=== PATIENT | male | born 1965 | race Caucasian/White ===

== ENCOUNTER 2016-10-10 16:53 | Inpatient (IN) | payer MEDICAID ==
[~2016-10-10 16:53] MED LIST: ONDANSETRON 4 MG/2 ML VIAL ONE
[2016-10-10] MEDS ORDERED: ONDANSETRON 4 MG/2 ML VIAL IVP ONE ×2 (17:01→19:25)
[2016-10-10] MEDS ORDERED: NS 1,000 ML IV ONE (17:01)
--- NOTE | 2016-10-10 17:16 | CPEKG ---
Heart Rate: 85 RR Interval: 706 P-R Interval: 192 QRSD Interval: 100 QT Interval: 392 QTC Interval: 467 P [place]: 59 QRS [place]: 140 T Wave [place]: 45 EKG Severity - BORDERLINE ECG - EKG Impression: SINUS RHYTHM EKG Impression: PROBABLE LEFT ATRIAL ABNORMALITY EKG Impression: CONSIDER RIGHT VENTRICULAR HYPERTROPHY EKG Impression: ST ELEV, PROBABLE NORMAL EARLY REPOL PATTERN Electronically Signed By: Riley Aj 10-Oct-2016 20:49:51
--- NOTE | 2016-10-10 17:16 | EDPHY ---
H & P Stated Complaint: ABD PAIN, N/D- AT [employer] HAD SYNCOPAL EPISODE HPI/ROS: CHIEF COMPLAINT: Syncope, abdominal pain, diarrhea, vomiting HISTORY OF PRESENT ILLNESS: the patient woke this morning with diarrhea. He notes numerous episodes of nonbloody, liquidy diarrhea. Associated with some periumbilical abdominal pain and nausea. No vomiting until this evening. No bloody stools or emesis. No fever or chills. No chest pain of any kind. No trauma or injury. No recent travel or surgery. No new intake of food. No sick contacts. 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 He said that after taking only became lightheaded and dizzy immediately, and reports being told that he blacked out. Next thing he can remember, he is awake and there was When EMS team with him. No headache prior to the syncopal episode. Minimal headache at this time. Symptoms are improved at rest but worse with any palpation or movement. No history of syncope. No abdominal pathology in the past. No diabetes. No other associated complaints or modifying factors. REVIEW OF SYSTEMS: Ten systems reviewed and are negative unless otherwise noted in the HPI EXAMINATION General Appearance: Alert, no distress Head: normocephalic, atraumatic , no outward signs of trauma Eyes: Pupils equal and round, EOMs intact. no conjunctival pallor or injection , no nystagmus. Visual zimmerman intact. ENT, Mouth: Mucous membranes moist, no lesions or erythema. Uvula midline Neck: Normal inspection, supple, non-tender Respiratory: Lungs are clear to auscultation Cardiovascular: Regular rate and rhythm Gastrointestinal: overweight. Abdomen is soft But moderately tender in the periumbilical and bilateral lower quadrants. There is no rebound or guarding. No tympany. Back: non-tender, no bony abnormalities Neurological: A&O, nonfocal, CN 2 through 12 grossly intact, sensory intact bilaterally. Strength is 5/5 in both arms and both legs. No pronator drift. Skin: Warm and dry, no rash Extremities: Nontender, no pedal edema Psychiatric: Mood and affect normal DIFFERENTIAL DIAGNOSES: Including but not limited to Dehydration, syncope, colitis, diverticulitis, pancreatitis, enteritis, dysrhythmia. MDM: 20:10 Nausea, vomiting, diarrhea and abdominal pain with subsequent possible syncopal episode. the patient was well-appearing and nontoxic upon 1st examination. He was very tender to palpation in the abdomen, thus we did order CT scan of the abdomen and pelvis. We also ordered multiple laboratory studies as well as CT of the head and EKG due to the syncope. I was contacted by Radiology notified of findings. A CT of the head, he knows the right basal ganglia lesion, approximately 1 cm that he suspects is a venous malformation. He does not suspect an AVM. Nor does he suspect an actual enhancing lesion. He questions the possibility of seizure given the patient's history and appearance of the CT scan. I will contact the hospitalist to discuss and for admission. 20:20 I have spoken with [address] Nolen, and he will consult regarding the abdominal pain and CT findings. 20:47 Dr. Nolen Has personally examined the patient and reviewed the films. He does not feel that this is a volvulus, but does want NG tube insertion for decompression. He will continue to monitor the patient with abdominal exams for the possibility of surgical intervention should it be needed. I have also spoken with Dr. Crane, and she will admit the patient to a PCU bed. At this time, he will be admitted for further care. He remains hemodynamically stable in the emergency department and is comfortable with this plan. EKG: Interpreted by Dr. Aj SUPERVISION: Patient was evaluated in conjunction with the supervising physician. Please see their note for details. - Personal History Current Tetanus/Diphtheria Vaccine: Yes Current Tetanus Diphtheria and Acellular Pertussis (TDAP): Yes Tetanus Vaccine Date: 2010 - Medical/Surgical History Hx Asthma: No Hx Chronic Respiratory Disease: No Hx Diabetes: No Hx Cardiac Disease: No Hx Renal Disease: No Hx Cirrhosis: No Hx Alcoholism: No Hx HIV/AIDS: No Hx Splenectomy or Spleen Trauma: No Other PMH: anxiety, asperger's; kidney stones; Left ankle sx - Social History Smoking Status: Never smoked Constitutional: Initial Vital Signs Temperature (C) 97.7 F 10/10/16 16:53 Heart Rate 84 10/10/16 16:53 Respiratory Rate 18 10/10/16 16:53 Blood Pressure 136/89 H 10/10/16 16:53 O2 Sat (%) 96 10/10/16 16:53 O2 Delivery Mode Room Air Allergies/Adverse Reactions: No Known Allergies Allergy (Verified 01/16/17 17:06) Home Medications: Medication Instructions Recorded NK [No Known Home Meds] 10/10/16 Medical Decision Making - Data Points Laboratory Results: Laboratory Results 10/10/16 18:25 10/10/16 18:25 10/10/16 10/10/16 18:34 18:25 WBC 16.48 H 10^3/uL (3.80-9.50) RBC 6.24 10^6/uL (4.40-6.38) Hgb 17.5 g/dL (13.7-17.5) POC Hgb 19.0 H gm/dL (14.5-17.3) Hct 52.4 H % (40.0-51.0) POC Hct 56 H % (42.8-50.6) MCV 84.0 fL (81.5-99.8) MCH 28.0 pg (27.9-34.1) MCHC 33.4 g/dL (32.4-36.7) RDW 14.3 % (11.5-15.2) Plt Count 255 10^3/uL (150-400) MPV 11.5 fL (8.7-11.7) Neut % (Auto) 84.1 H % (39.3-74.2) Lymph % (Auto) 9.2 L % (15.0-45.0) [place] % (Auto) 5.5 % (4.5-13.0) Eos % (Auto) 0.4 L % (0.6-7.6) Baso % (Auto) 0.4 % (0.3-1.7) Nucleat RBC Rel Count 0.0 % (0.0-0.2) Absolute Neuts (auto) 13.89 H 10^3/uL (1.70-6.50) Absolute Lymphs (auto) 1.51 10^3/uL (1.00-3.00) Absolute Monos (auto) 0.90 H 10^3/uL (0.30-0.80) Absolute Eos (auto) 0.06 10^3/uL (0.03-0.40) Absolute Basos (auto) 0.06 10^3/uL (0.02-0.10) Absolute Nucleated RBC 0.00 10^3/uL (0-0.01) Immature Gran % 0.4 % (0.0-1.1) Immature Gran # 0.06 10^3/uL (0.00-0.10) POC Sodium 141 mEq/L (134-144) Sodium 140 mEq/L (134-144) POC Potassium 4.3 mEq/L (3.3-5.0) Potassium 4.7 mEq/L (3.5-5.2) POC Chloride 104 mEq/L (96-108) Chloride 102 mEq/L (97-110) Carbon Dioxide 23 mEq/l (22-31) Anion Gap 15 mEq/L (8-16) POC BUN 16 mg/dL (7-23) BUN 14 mg/dL (7-23) Creatinine 0.9 mg/dL (0.7-1.3) POC Creatinine 0.9 mg/dL (0.8-1.5) Estimated GFR > 60 Glucose 135 H mg/dL (70-100) POC Glucose 139 H mg/dL (70-100) Calcium 9.8 mg/dL (8.5-10.4) Total Bilirubin 0.7 mg/dL (0.1-1.4) Conjugated Bilirubin 0.5 mg/dL (0.0-0.5) Unconjugated Bilirubin 0.2 mg/dL (0.0-1.1) AST 34 IU/L (17-59) ALT 56 IU/L (21-72) Alkaline Phosphatase 88 IU/L (38-126) Troponin I < 0.012 ng/mL (0-0.034) Total Protein 7.8 g/dL (6.3-8.2) Albumin 4.7 g/dL (3.5-5.0) Lipase 69.0 IU/L (23-300) Medications Given: Discontinued Medications Sodium Chloride (Ns) 1,000 mls @ 0 mls/hr IV ONCE ONE PRN Reason: Wide Open Stop: 10/10/16 17:02 Last Admin: 10/10/16 17:07 Dose: 1,000 mls Ondansetron HCl (Zofran) 4 mg IVP EDNOW ONE Stop: 10/10/16 17:02 Last Admin: 10/10/16 17:07 Dose: 4 mg Ondansetron HCl (Zofran) 4 mg IVP EDNOW ONE Stop: 10/10/16 19:26 Last Admin: 10/10/16 19:28 Dose: 4 mg Point of Care Test Results: 10/10/16 18:34 POC Sodium 141 POC Potassium 4.3 POC Chloride 104 POC BUN 16 POC Creatinine 0.9 POC Glucose 139 H Departure - Departure Clinical Impression: Syncope and collapse, Abdominal pain, Diarrhea, Nausea and vomiting Referrals: Patient,NotPresent [Primary Care Provider] - As per Instructions
--- NOTE | 2016-10-10 17:41 | DX ---
Portable AP Upright Chest, at 5:23 p.m. Clinical History: 51-year-old male with dizziness and a syncopal event, and now complaining of some a bdominal pain and diarrhea for one day. Comparison Study: Chest, dated September 28, 2013. Findings: There is elevation of the left hemidiaphragm with air-filled stomach and/or splenic flexure beneath. There is some mild subsegmental atelectasis at the left lung base as a result. The cardiac and mediastinal silhouette is normal. The inspiratory depth is to the 9th posterior rib level. There is no pleural effusion or pneumothorax. The osseous structures are age-appropriate. Impression: Mild hypoventilatory change with a mildly elevated left hemidiaphragm secondary to air-fi lled stomach and/or splenic flexure with some mild left basilar subsegmental atelectasis.
[2016-10-10] MEDS ORDERED: IOPAMIDOL (ISOVUE-300) 50 ML VIAL IV ONE (18:31)
[2016-10-10 18:43] LABS: % IMMATURE GRANULYOCYTES 0.4 % (0.0-1.1); ABSOLUTE IMMATURE GRANULOCYTES 0.06 10^3/uL (0.00-0.10); ADD DIFF? NO; ADD MORPH? NO; ADD SCAN? NO; ATYPICAL LYMPHOCYTE FLAG 0 (0-99); FRAGMENT RBC FLAG 0 (0-99); HEMATOCRIT 52.4 % (40.0-51.0); HEMOGLOBIN 17.5 g/dL (13.7-17.5); LEFT SHIFT FLG 0 (0-99); LIPEMIA HEMOLYSIS FLAG 80 (0-99); MEAN CELL HEMOGLOBIN CONCENTR. 33.4 g/dL (32.4-36.7); MEAN PLATELET VOLUME 11.5 fL (8.7-11.7); PLATELET CLUMPS FLAG 10 (0-99); PLATELET COUNT 255 10^3/uL (150-400); RED BLOOD CELL COUNT 6.24 10^6/uL (4.40-6.38); RED CELL DISTRIBUTION WIDTH 14.3 % (11.5-15.2)
[2016-10-10 19:24] LABS: ALANINE AMINOTRANSFERASE 56 IU/L (21-72); ALBUMIN 4.7 g/dL (3.5-5.0); ALKALINE PHOSPHATASE 88 IU/L (38-126); ANION GAP 15 mEq/L (8-16); ASPARTATE AMINOTRANSFERASE 34 IU/L (17-59); BILIRUBIN,TOTAL 0.7 mg/dL (0.1-1.4); BILIRUBIN-CONJUGATED 0.5 mg/dL (0.0-0.5); BILIRUBIN-UNCONJUGATED 0.2 mg/dL (0.0-1.1); CALCIUM 9.8 mg/dL (8.5-10.4); CARBON DIOXIDE 23 mEq/l (22-31); CHLORIDE 102 mEq/L (97-110); CREATININE 0.9 mg/dL (0.7-1.3); GLOMERULAR FILTRATION RATE > 60; GLUCOSE 135 mg/dL (70-100); POTASSIUM 4.7 mEq/L (3.5-5.2); SODIUM 140 mEq/L (134-144); TOTAL PROTEIN 7.8 g/dL (6.3-8.2)
[2016-10-10] MEDS ORDERED: ONDANSETRON 4 MG/2 ML VIAL ONE (19:25)
[2016-10-10 19:36] LABS: TROPONIN I < 0.012 ng/mL (0-0.034)
--- NOTE | 2016-10-10 20:10 | CT ---
CT Abdomen and Pelvis, With Intravenous Contrast History: Abdominal pain and vomiting. Technique: The patient received 97 mL of Isovue-300 intravenously, given by automated power machine injector. Multidetector helical CT was performed through the abdomen and pelvis using dose reduction technology. Comparison: Compare 2014. Findings: Some of the small bowel is dilated to a moderate extent, and the stomach is moderately dis tended. Distal loops of small bowel, however, are of normal caliber. Possible twist of small bowel loop is found in the left side of the abdomen, and small bowel mesentery appears edematous. I do not see the appendix. No solid masses are found. Bilateral renal cysts are similar to 2014, with no hy dronephrosis. A 4-mm stone in the lower pole of the left kidney is new. No evidence of ureteral sto ne. Nodular enlargement of the prostate gland is worse than 2014. The liver, gallbladder, pancreas, spleen, and adrenal glands are normal. No ascites. Impressions 1. Suspicious of small bowel obstruction, possibly volvulus. 2. A 4-mm left ureteral stone. 3. Enlarged prostate. I telephoned results to Dr. Aj at 2005 hours.
--- NOTE | 2016-10-10 20:26 | CT ---
CT Scan of the Head (Without and With Contrast) Clinical Indications: Syncopal episode in store. Technique: Thinly collimated multidetector axial CT was performed from foramen magnum through vertex before and following 97 mL of Isovue-300 given intravenously by power machine injection. Images wer e reviewed at settings for soft tissues and bone. Images were reconstructed down to 1.25-mm images. Dose reduction techniques were utilized. Findings: A vague area of increased density of up to 1.2 cm size in the right globus pallidus is ass ociated with a rather prominent deep draining vein that empties into the venous plexus of the right l ateral ventricle. A faint calcification is found along the posterior margin of this finding. No mas s effect. Findings are suspicious of venous malformation. There is no evidence of intracranial hemo rrhage or acute infarct. The ventricles and subarachnoid spaces are normal. No abnormality of enhan cement is identified. Bone windows reveal no fracture. Paranasal sinuses and mastoid air cells are free of fluid. Impression: 1.2-cm lesion of right globus pallidus (basal ganglia), possibly venous malformation. I telephoned results to CANDELARIO Jensen, at 2005 hours.
[2016-10-10] MEDS ORDERED: LIDOCAINE 2% JELLY 20 ML (UROJECT) ONE (20:52)
[2016-10-10] MEDS ORDERED: BENZOCAINE UNIT DOSE SPRAY HURRICAINE MM ONE ×3 (20:54→22:11)
[2016-10-10 21:09] LABS: INR 1.1 (0.83-1.16); PROTIME(PATIENT) 14.1 SEC (12.0-15.0)
[2016-10-10] MEDS ORDERED: PROMETHAZINE HCL 25 MG/ML VIAL IM ONE (21:09)
[2016-10-10 21:10] LABS: APTT 24.1 SEC (23.0-38.0)
--- NOTE | 2016-10-10 22:05 | GCON ---
[f rep st] CONSULTATION DATE OF CONSULTATION: 10/10/2016 CHIEF COMPLAINT: Abdominal pain with syncopal episode. HISTORY OF PRESENT ILLNESS: This is a 51-year-old male, who began having abdominal pain last evening , coming in to today. He works at the local [employer] and was able to get to work; however, had sig nificant diarrhea, which he states was nonbloody, nonbilious at work. This persisted to the point wh ere he had some growing abdominal pain. He states that he finished his shift at work and attempted t o go to [facility] to buy some [id number] medications to alleviate his pain. He endorses having a significantly excruciatingly painful episode that he relates around his umbilicus on either side whic h was quickly followed by a syncopal episode. He recalls being awoken on the floor of the [facility], lino rrounded by the EMS. He was promptly brought here. Once arriving at the [facility], he began having a significant amount of nausea and vomiting and threw up multiple times. He shukla s endorse that vomiting makes his pain significantly better. After receiving some IV fluids and narc otics, he states that his pain has almost completely resolved and relates it at a 0.5 on a 1-10 scale . He states that he was passing a significant amount of flatus over the past few weeks; however, has not really passed much today. His last bowel movement again was earlier today when he was having a significant amount of diarrhea. He denies having any fevers or chills, and prior to this states that he was in his usual state health other than the episodes previously mentioned earlier today. He den ies having any sick contacts in the meantime as well. PAST MEDICAL HISTORY: Anxiety, Asperger's, kidney stones. PAST SURGICAL HISTORY: Left ankle surgery, for which he states he had issues with urination afterwar ds. REVIEW OF SYSTEMS: A full 10-point review of systems was performed and, unless explicitly stated abo ve, it was negative. CURRENT MEDICATIONS: None. ALLERGIES: None. PHYSICAL EXAM: VITAL SIGNS: Temperature 97.7, heart rate 84, blood pressure 130/89, respiratory rat e 18, he is 96% on room air. GENERAL: He is alert and oriented, in no acute distress. LUNGS: Abbi r to auscultation bilaterally. CARDIOVASCULAR: He has a regular rate and rhythm without any appreci able murmurs. ABDOMEN: Soft, nondistended, nontender without any rebound, tenderness or guarding. EXTREMITIES: Warm and well perfused. LABS: Leukocytosis to 16,000, hemoglobin and hematocrit stable. His BMP is within normal limits. IMAGING: He had a CT scan of the abdomen and pelvis which shows a significant amount of dilatation o f his stomach and proximal small bowel. There is a concerning area in the left lower quadrant with s ome surrounding mesenteric edema without any fady transition point and/or volvulus. The distal smal l portion of the ileum image does show some decompressed small bowel, albeit limited in length. He a lso had a CT scan of his head given his syncope which showed a 1.2 cm lesion in the right globus pall idus suspicious for venous malformation. ASSESSMENT/PLAN: A 51-year-old male with recent syncopal episode and CT scan imaging findings concer jodi for small bowel obstruction. I discussed the patient's imaging findings with him today. Given the fact that his abdominal exam now is completely reassuring and that his pain has completely resolv ed, I am hesitant to take him to the operating room given his drastic clinical improvement. I did tel l him that given that he had a significant amount of small bowel and stomach dilatation, he would lola efit from a nasogastric tube, which I have asked the emergency department to place. I will continue to monitor him from a small-bowel standpoint, but I am hesitant to take him to the operating room wit h his currently reassuring exam. In addition, he also has a mother with Crohn disease, so he does galindo ve a significant family history for inflammatory bowel disease, and this mesenteric edema with second mayda obstruction to the inflammation is not an uncommon way that these can present, so I would want th is to be significantly ruled out before I made the decision to go in and resected it if he did have a n underlying Crohn disease flare. I will continue to follow and reassess on an ongoing basis. If in the morning his abdominal exam worsens or if he continues to have pain, I will not hesitate to take him to the operating room for exploratory laparoscopy just to get a better idea as to what is going o n with his abdomen. But we will hold off for now given his current reassuring exam. In addition, he will be admitted to the medicine service for workup for his syncopal episode and his new CT scan fin dings of the venous malformation. We will follow along with you. /[id number]/MODL
[2016-10-10 23:04] LABS: COLOR YELLOW; LEUKOCYTE ESTERASE,URINE 3+ (NEGATIVE); NITRITE,URINE POSITIVE (NEGATIVE)
[2016-10-10 23:20] LABS: BACTERIA TRACE /hpf (NONE SEEN); MUCUS TRACE /lpf (NONE-1+); RBC,URINE 15-25 /hpf (0-3); WBC,URINE 50-182 /hpf (0-3)
[2016-10-10] MEDS ORDERED: ACETAMINOPHEN 325 MG TAB PO PRN (23:40)
[2016-10-10] MEDS ORDERED: ONDANSETRON DISINTEGRATING 4 MG TAB PO PRN (23:40)
[2016-10-10] MEDS ORDERED: ONDANSETRON 4 MG/2 ML VIAL IVP PRN (23:40)
[2016-10-10] MEDS ORDERED: HYDROCODONE/APAP 5/325 TAB PO PRN (23:40)
[2016-10-10] MEDS ORDERED: LORazepam 0.5 MG TAB PO PRN (23:40)
[2016-10-11] MEDS: NS 1,000 ML IV SCH ×2 (00:13→12:39)
[2016-10-11] MEDS: CIPROFLOXACIN 400 MG/DEXTROSE 200 ML IV SCH ×3 (00:31→21:19)
--- NOTE | 2016-10-11 04:31 | PDGENHP ---
History and Physical - Chief Complaint syncope - History of Present Illness Patient is a 51-year-old male with a history of obesity, Asperger syndrome who to the ED after syncopal episode. Patient states since this morning he had developed acute onset nausea, vomiting and diarrhea. He reports vomiting at least 6 times today, nonbloody, and having at least 12 bowel movements of loose brown stool, with no evidence of blood. Then and today he was in the checkout line at [employer] at around 4:00 p.m. when he syncopized. He believes loss of consciousness was less than a minute, awoke with full cognition, thinks he did hit his head on the ground. Prior to syncopized, he describes feeling lightheaded and darkening of his vision, but denies any associated chest pain palpitations or shortness of breath. EMS was called and he was brought to the ED. On arrival to the ED patient was afebrile hemodynamically stable. Labs revealed leukocytosis, normal BMP and electrolytes, negative troponin. CT of the abdomen and pelvis was obtained, revealed evidence of bowel obstruction and a small left ureteral stone. CT head was negative for acute intracranial hemorrhage, but did reveal a basal ganglion lesion, likely venous malformation. EKG was unremarkable for any evidence of ischemia or arrhythmia. Surgery was consulted regarding the small bowel obstruction and an NG tube was placed in the ER. Patient was then admitted to the hospital service for further management. History Information - Allergies/Home Medication List Allergies/Adverse Reactions: No Known Allergies Allergy (Verified 10/10/16 17:06) Home Medications: NK [No Known Home Meds] 10/10/16 [Last Taken Unknown] I have personally reviewed and updated: family history, medical history, social history, surgical history - Past Medical History Additional medical history: Asperger syndrome, anxiety. 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 Review of Systems ROS: 10pt was reviewed & negative except for what was stated in HPI & below Physical Exam Temp Pulse Resp BP Pulse Ox 36.5 C 97 19 135/83 H 93 10/10/16 22:45 10/10/16 22:45 10/10/16 22:45 10/10/16 22:45 10/10/16 22:45 Lab Data & Imaging Review 10/10/16 18:25 10/10/16 18:25 WBC 16.48 10^3/uL (3.80-9.50) H 10/10/16 18:25 RBC 6.24 10^6/uL (4.40-6.38) 10/10/16 18:25 Hgb 17.5 g/dL (13.7-17.5) 10/10/16 18:25 POC Hgb 19.0 gm/dL (14.5-17.3) H 10/10/16 18:34 Hct 52.4 % (40.0-51.0) H 10/10/16 18:25 POC Hct 56 % (42.8-50.6) H 10/10/16 18:34 MCV 84.0 fL (81.5-99.8) 10/10/16 18:25 MCH 28.0 pg (27.9-34.1) 10/10/16 18:25 MCHC 33.4 g/dL (32.4-36.7) 10/10/16 18:25 RDW 14.3 % (11.5-15.2) 10/10/16 18:25 Plt Count 255 10^3/uL (150-400) 10/10/16 18:25 MPV 11.5 fL (8.7-11.7) 10/10/16 18:25 Neut % (Auto) 84.1 % (39.3-74.2) H 10/10/16 18:25 Lymph % (Auto) 9.2 % (15.0-45.0) L 10/10/16 18:25 [place] % (Auto) 5.5 % (4.5-13.0) 10/10/16 18:25 Eos % (Auto) 0.4 % (0.6-7.6) L 10/10/16 18:25 Baso % (Auto) 0.4 % (0.3-1.7) 10/10/16 18:25 Nucleat RBC Rel Count 0.0 % (0.0-0.2) 10/10/16 18:25 Absolute Neuts (auto) 13.89 10^3/uL (1.70-6.50) H 10/10/16 18:25 Absolute Lymphs (auto) 1.51 10^3/uL (1.00-3.00) 10/10/16 18:25 Absolute Monos (auto) 0.90 10^3/uL (0.30-0.80) H 10/10/16 18:25 Absolute Eos (auto) 0.06 10^3/uL (0.03-0.40) 10/10/16 18:25 Absolute Basos (auto) 0.06 10^3/uL (0.02-0.10) 10/10/16 18:25 Absolute Nucleated RBC 0.00 10^3/uL (0-0.01) 10/10/16 18:25 Immature Gran % 0.4 % (0.0-1.1) 10/10/16 18:25 Immature Gran # 0.06 10^3/uL (0.00-0.10) 10/10/16 18:25 PT 14.1 SEC (12.0-15.0) 10/10/16 20:49 INR 1.10 (0.83-1.16) 10/10/16 20:49 APTT 24.1 SEC (23.0-38.0) 10/10/16 20:49 POC Sodium 141 mEq/L (134-144) 10/10/16 18:34 Sodium 140 mEq/L (134-144) 10/10/16 18:25 POC Potassium 4.3 mEq/L (3.3-5.0) 10/10/16 18:34 Potassium 4.7 mEq/L (3.5-5.2) 10/10/16 18:25 POC Chloride 104 mEq/L (96-108) 10/10/16 18:34 Chloride 102 mEq/L (97-110) 10/10/16 18:25 Carbon Dioxide 23 mEq/l (22-31) 10/10/16 18:25 Anion Gap 15 mEq/L (8-16) 10/10/16 18:25 POC BUN 16 mg/dL (7-23) 10/10/16 18:34 BUN 14 mg/dL (7-23) 10/10/16 18:25 Creatinine 0.9 mg/dL (0.7-1.3) 10/10/16 18:25 POC Creatinine 0.9 mg/dL (0.8-1.5) 10/10/16 18:34 Estimated GFR > 60 10/10/16 18:25 Glucose 135 mg/dL (70-100) H 10/10/16 18:25 POC Glucose 139 mg/dL (70-100) H 10/10/16 18:34 Calcium 9.8 mg/dL (8.5-10.4) 10/10/16 18:25 Total Bilirubin 0.7 mg/dL (0.1-1.4) 10/10/16 18:25 Conjugated Bilirubin 0.5 mg/dL (0.0-0.5) 10/10/16 18:25 Unconjugated Bilirubin 0.2 mg/dL (0.0-1.1) 10/10/16 18:25 AST 34 IU/L (17-59) 10/10/16 18:25 ALT 56 IU/L (21-72) 10/10/16 18:25 Alkaline Phosphatase 88 IU/L (38-126) 10/10/16 18:25 Troponin I < 0.012 ng/mL (0-0.034) 10/11/16 00:25 Total Protein 7.8 g/dL (6.3-8.2) 10/10/16 18:25 Albumin 4.7 g/dL (3.5-5.0) 10/10/16 18:25 Lipase 69.0 IU/L (23-300) 10/10/16 18:25 Prolactin 20.6 ng/mL (3.7-17.9) H 10/10/16 18:25 Urine Color YELLOW 10/10/16 22:50 Urine Appearance MODERATELY TURBID 10/10/16 22:50 Urine pH 5.0 (5.0-7.5) 10/10/16 22:50 Ur Specific [place] > 1.035 (1.002-1.030) H 10/10/16 22:50 Urine Protein 1+ (NEGATIVE) H 10/10/16 22:50 Urine Ketones NEGATIVE (NEGATIVE) 10/10/16 22:50 Urine Blood 1+ (NEGATIVE) H 10/10/16 22:50 Urine Nitrate POSITIVE (NEGATIVE) H 10/10/16 22:50 Urine Bilirubin NEGATIVE (NEGATIVE) 10/10/16 22:50 Urine Urobilinogen NEGATIVE EU (0.2-1.0) 10/10/16 22:50 Ur Leukocyte Esterase 3+ (NEGATIVE) H 10/10/16 22:50 Urine RBC 15-25 /hpf (0-3) H 10/10/16 22:50 Urine WBC 50-182 /hpf (0-3) H 10/10/16 22:50 Ur Epithelial Cells TRACE /lpf (NONE-1+) 10/10/16 22:50 Urine Bacteria TRACE /hpf (NONE SEEN) H 10/10/16 22:50 Hyaline Casts 1-5 /lpf (0-1) 10/10/16 22:50 Urine Mucus TRACE /lpf (NONE-1+) 10/10/16 22:50 Ur Culture Indicated? INDICATED (NI) H 10/10/16 22:50 Urine Glucose NEGATIVE (NEGATIVE) 10/10/16 22:50 Stool Ova & Parasites SOFT BROWN STOOL 10/10/16 23:59 Direct Microscop Exam NONE SEEN (NONE SEEN) 10/10/16 23:59 Visualized and Interpreted Chest x-ray results: Yes Chest X-Ray results: no infiltrate, normal Visualized and Interpreted imaging results: Yes Interpretation: CT abdomen pelvis: Possible small bowel obstruction, cannot rule out volvulus. CT head: No acute infarct hemorrhage or edema, basal ganglion lesion Visualized and Interpreted EKG results: Yes EKG Interpretation: Positive for: normal sinsus rhythm Assessment & Plan Assessment: Patient is a 51-year-old male with no significant past medical history who presents to the ED after a syncopal episode, also with 1 day profuse nausea vomiting and diarrhea. ED evaluation reveals possible small bowel obstruction. Plan: # syncope Given patient's history of multiple episodes of vomiting and diarrhea, syncope likely related to orthostasis/hypovolemia. Patient denies any preceding cardiac symptoms and initial EKG and troponin are negative. Will check orthostatics and also give IV fluid hydration. CT head does reveal a 1.2 cm basal ganglion lesion, no prior CT to compare this to. Will consult Neurosurgery regarding this. # nausea, vomiting, diarrhea Given patient's description of events appears infectious in etiology. CT however shows possible small bowel obstruction. Given leukocytosis, will cover for enteritis with antibiotics, will also check stool studies and C diff. Surgery has been consulted regarding possible small bowel obstruction, NG tube was placed without significant drainage. Will continue to follow up surgery's recommendations. # leukocytosis, UTI Patient does not meet SIRS criteria, does not have obvious sepsis. Leukocytosis likely related acute enteritis. UA also positive for nitrites and leuk esterase consistent with UTI so will cover for both sources of infection. # dispo: admit to inpt service for > 2 MN stay # gen: NPO DVT ppx: lovenox Full code
[2016-10-11 06:11] LABS: % IMMATURE GRANULYOCYTES 0.5 % (0.0-1.1); ABSOLUTE IMMATURE GRANULOCYTES 0.05 10^3/uL (0.00-0.10); ADD DIFF? NO; ADD MORPH? NO; ADD SCAN? NO; ATYPICAL LYMPHOCYTE FLAG 0 (0-99); FRAGMENT RBC FLAG 0 (0-99); HEMATOCRIT 48.2 % (40.0-51.0); HEMOGLOBIN 16.2 g/dL (13.7-17.5); LEFT SHIFT FLG 0 (0-99); LIPEMIA HEMOLYSIS FLAG 80 (0-99); MEAN CELL HEMOGLOBIN 28.1 pg (27.9-34.1); MEAN CELL HEMOGLOBIN CONCENTR. 33.6 g/dL (32.4-36.7); MEAN CELL VOLUME 83.5 fL (81.5-99.8); MEAN PLATELET VOLUME 11.9 fL (8.7-11.7); PLATELET CLUMPS FLAG 0 (0-99); PLATELET COUNT 278 10^3/uL (150-400); RED BLOOD CELL COUNT 5.77 10^6/uL (4.40-6.38); RED CELL DISTRIBUTION WIDTH 14.3 % (11.5-15.2)
[2016-10-11 06:29] LABS: ANION GAP 12 mEq/L (8-16); CALCIUM 9.3 mg/dL (8.5-10.4); CARBON DIOXIDE 24 mEq/l (22-31); CHLORIDE 105 mEq/L (97-110); CREATININE 0.8 mg/dL (0.7-1.3); GLOMERULAR FILTRATION RATE > 60; GLUCOSE 99 mg/dL (70-100); POTASSIUM 4.6 mEq/L (3.5-5.2); SODIUM 141 mEq/L (134-144)
[2016-10-11 06:30] LABS: INR 1.09 (0.83-1.16)
[2016-10-11 06:31] LABS: APTT 27.1 SEC (23.0-38.0)
[2016-10-11 06:38] LABS: TROPONIN I < 0.012 ng/mL (0-0.034)
[2016-10-11] MEDS: ENOXAPARIN 40 MG/0.4 ML SYR SC SCH (09:07)
[2016-10-11 10:31] LABS: O/P DIRECT NONE SEEN (NONE SEEN)
--- NOTE | 2016-10-11 10:55 | SOAPPROG ---
SOAP Progress Note Assessment/Plan: Assessment/Plan - 51yo male c syncopal episode, SBO - Abdominal exam remains completely reassuring today. Did have one episode overnight which resolved without issue. Given rapid resolution of Sx and minimal NGT output favor infectious etiology for cause of SBO. Will remove NGT today given scant output. Would be judicious with clears as I do feel he will poorly regulate PO intake. Will get NSG eval today but would keep in house for addl 24hrs abx. If looks good tomorrow, would ADAT to ensure tolerance of reg diet before d/c home. Will cont to follow 10/11/16 10:49 10/11/16 10:50 Subjective: Feels much better, wants NGT out. Did have one episode of pain last night which was self limited Objective: Vital Signs Temp Pulse Resp BP Pulse Ox 36.6 C 82 16 107/80 94 10/11/16 08:00 10/11/16 08:00 10/11/16 08:00 10/11/16 08:00 10/11/16 08:00 Microbiology 10/10/16 23:59 Gastrointestinal Tract Panel (PCR) - Final Stool Laboratory Results 10/11/16 05:05 10/11/16 05:05 10/10/16 10/11/16 10/12/16 05:59 05:59 05:59 Intake Total 815 Balance 815 PT 14.0 SEC (12.0-15.0) 10/11/16 05:05 INR 1.09 (0.83-1.16) 10/11/16 05:05 ICD10 Worksheet Patient Problems: Problems Problem Status Diagnosed Abdominal pain Acute Diarrhea Acute Nausea and vomiting Acute Syncope and collapse Acute Gastroenteritis Acute
[2016-10-11 11:28] LABS: CLOSTRIDIUM DIFFICILE DNA NEGATIVE (NEGATIVE)
[2016-10-11 13:38] LABS: O/P CONCENTRATION NONE SEEN (NONE SEEN)
--- NOTE | 2016-10-11 14:12 | GCON ---
[f rep st] CONSULTATION CONSULTATION/HISTORY AND PHYSICAL CHIEF COMPLAINT: 1. Syncope. 2. Abdominal pain. 3. Incidental finding of a vascular abnormality seen on CT scan. HISTORY OF PRESENT ILLNESS: The patient is a 51-year-old male who has a history of obesity, Asperger syndrome, who came into the emergency department after a syncopal episode. The patient states that he had preceding symptoms of acute onset of nausea, vomiting, and diarrhea. He reported some vomitin g of probably 6 times that was non bloody. He had at least 12 bowel movements of loose brown stool. He was in the checkout at [employer] getting some medication to help with his symptoms when he loss cons ciousness, awoke on the ground, with others around him. EMS was notified, and he was brought into [facility] emergency department, afebrile, and hemodynamically stable. He had some abnormalities on his labs, and a CT scan of the pelvis was obtained, which showed a possible bowel obstruction and a small left ureteral stone. He did have a CT scan of the head, which showed a basal ganglion lesion, likely a v enous malformation. An EKG was unremarkable. Patient denies any upper or lower extremity complaints such as numbness, tingling, weakness, or pain. He was seen and evaluated both by myself and Dr. Roman son. PAST MEDICAL HISTORY: 1. Asperger syndrome. 2. Anxiety. 3. Obesity. PAST SURGICAL HISTORY: Foot surgery. MEDICATIONS: Please see med reconciliation. ALLERGIES: No known drug allergies. FAMILY HISTORY: Mother with CHF and Crohn disease. SOCIAL HISTORY: Patient has never smoked. No alcohol use. No drug use. 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 IMMUNIZATIONS: Reported up to date. TRAVEL: No recent travel. REVIEW OF SYSTEMS: Complete review of systems done in conjunction with above noted for the following . No headache, no diplopia, no blurred vision. No loss of visual field. No hearing loss, tinnitus or vertigo. PULMONARY: No cough, sputum production, hemoptysis, dyspnea or pleuritic chest pain. C ARDIAC: No chest pain or pressure. No palpitations. GI: No weight loss or gain. No nausea, vomit ing, or diarrhea now, but did have it at presentation. : No dysuria, hematuria, nocturia, urgency or frequency. NEURO: Patient denies any dizziness. Does have syncopal episodes. No seizures, no vertigo, no paresthesias or weakness. PSYCHIATRIC: No suicidality, homicidality. PHYSICAL EXAMINATION: GENERAL: This is an awake, alert, oriented male, who is able to follow comman ds appropriately. He is in no acute distress. VITAL SIGNS: Blood pressure 113/76, with a MAP of 88 , 87 heart rate, 18 respirations, 93% on room air, and a temperature of 36.8. HEENT: Head is normoc ephalic, atraumatic. Pupils are equal, round, reactive to light. EOMIs intact. He does have a dysc onjugate gaze. He states is normal from past medical history. Full visual zimmerman by confrontation. Ears patent. Nose is patent. NECK: Soft, supple. No midline tenderness. Full range of motion in flexion, extension, lateral bending, rotation. RESPIRATORY: Deferred. CARDIAC: Deferred. ABDOME N: Soft, nontender. No peritoneal signs. AND RECTAL: Deferred. NEURO: Patient is awake, aler t, and oriented to name, place, location, date, time, and situation. Memory is intact to immediate, past, and current events. Speech: No aphasia, dysarthria, dysphonia. Cranial nerves 2-12 grossly i ntact. Motor: Patient has 5/5 strength in all muscle groups of the bilateral upper and lower extrem ities to include deltoids, biceps, triceps, brachioradialis, wrist flexors and extensors, patient care assistant, intri nsic fingers, iliopsoas, quadriceps, hamstring, plantar flexion, dorsiflexion, EHL testing. Sensatio n is grossly intact to light touch throughout all dermatome distributions upper and lower extremities . Negative straight leg raise. Negative VIVIENNE test. Reflexes of the biceps, triceps, brachioradial is, knee jerk, and ankle jerk are 2+/4. Toes are downgoing bilaterally. Awan's negative. Babins ki negative. No evidence of clonus. MEDICAL DECISION MAKING/DIAGNOSTIC STUDIES: Laboratory tests obtained 10/11/2016 show a white count of 10.31, with an H and H of 16.2 and 48.2, with a platelet count of 278. Coags done on 10/11/2016 s how a PT of 14.0, INR of 1.09, PTT of 27.1. Chemistry on 10/11/2016 shows a sodium 141, potassium 4. 6, chloride 105, CO2 of 24, BUN 13, creatinine 0.8, and glucose of 99. IMAGING: Chest x-ray, abdominal CT deferred to the admitting provider and service. Head CT obtained 10/10/2016 showed a 1.2 cm lesion in the right basal ganglion, possibly venous malfo rmation. There was no acute bleed. No fracture was noted. Pending MRI of the brain with and without contrast. IMPRESSION: 1. Syncopal episode. 2. Abdominal pain with nausea and vomiting that has resolved. 3. 1.2 cm lesion in the right globus pallidus in the basal ganglion. PLAN/DISCUSSION: The patient is a 51-year-old male who has a history of Asperger's who lives alone, is employed, and works at the [employer]. He developed some nausea, vomiting, abdominal pain. He had a syncopal episode at [employer], and had a CT scan of the head due to this trauma, which n oted incidental finding of this 1.2 cm lesion in the right basal ganglion that is probably a venous m alformation. I ordered an MRI of his brain with and without contrast to further differentiate this. The patient understands and agrees with this. He states he feels normal. He has no headache. Neur ologically, he is intact and stable. At this point, we will further evaluate this and give him final recommendations once the imaging tests are obtained. He understands and agrees with this. All ques tions and concerns were answered. /[id number]/MODL
--- NOTE | 2016-10-11 15:32 | HOSPPROG ---
Hospitalist Progress Note Assessment/Plan: * SBO - evidence of mesenteric edema -passing gas, minimal NGT output - advance diet -suspect infectious origin - continue IV cipro -no indication for surgical intervention -consider Crohn's dz as + family history -consider GI consult -has no chronic GI complaints -recheck Abd Xray in am * Basal ganglia lesion on head CT -neurosurgery consulted - d/w Dr. Ordonez -MRI brain pending * Asperger's disease * UTI - cipro -culture pending -BPH by ct scan - start flomax * Syncope - due to hypovolemia * Obesity BMI 34 Subjective: passing gas Objective: Vital Signs Temp Pulse Resp BP Pulse Ox 36.8 C 87 18 113/76 93 10/11/16 12:00 10/11/16 12:00 10/11/16 12:00 10/11/16 12:00 10/11/16 12:00 Microbiology 10/10/16 23:59 Gastrointestinal Tract Panel (PCR) - Final Stool Laboratory Results 10/11/16 05:05 10/11/16 05:05 10/10/16 10/11/16 10/12/16 05:59 05:59 05:59 Intake Total 815 Balance 815 PT 14.0 SEC (12.0-15.0) 10/11/16 05:05 INR 1.09 (0.83-1.16) 10/11/16 05:05 CT abd: mesenteric edema with possible transition point head ct: basal ganglia lesion - Physical Exam Constitutional: no apparent distress, appears nourished, not in pain Cardiovascular: regular rate and rhythym, no murmur, rub, or gallop Respiratory: no respiratory distress, no rales or rhonchi, clear to auscultation Gastrointestinal: normoactive bowel sounds, soft, non-tender abdomen, no palpable masses Skin: no rashes or abrasions, no fluctuance, no induration Neurologic: AAOx3, sensation intact bilaterally Psychiatric: interacting appropriately, not anxious, not encephalopathic, thought process linear ICD10 Worksheet Patient Problems: Problems Problem Status Diagnosed Abdominal pain Acute Diarrhea Acute Nausea and vomiting Acute Syncope and collapse Acute Gastroenteritis Acute
[2016-10-11] MEDS ORDERED: GADOBUTROL 10 ML VIAL IVP ONE (18:22)
[2016-10-11 18:52] LABS: O/P DESCRIPTION SOFT BROWN STOOL; O/P TRICHROME NONE SEEN (NONE SEEN)
--- NOTE | 2016-10-11 19:15 | MR ---
MRI of the Head (Before and Following Gadolinium) Clinical Indications: Evaluate venous variant within the right globus pallidus. Technique: T1-weighted images were obtained sagittally and axially. Diffusion-weighted, inversion r ecovery, and fast T2-weighted axial images were obtained. T1-weighted axial and coronal images were obtained after intravenous administration of 10 mL of Gadavist. Comparison examination: CT head October 10, 2016. Findings: No features of acute cortical ischemia on diffusion-weighted imaging. There is a contrast enhancing venous structure compatible with venous angioma involving the right basal ganglia, draining centrally into the right lateral ventricle, similar to prior CT examination. This lesion is associat ed with metallic susceptibility artifact on SWI suggestive of prior micro-bleeding, without features of acute hemorrhage. The brain is otherwise normal in appearance. White matter structures appear normal. Craniocervical ju nction is normal. An empty sella turcica is incidentally identified. The skull base is otherwise unre markable. Carotid and vertebrobasilar flow voids are present. The brain otherwise enhances normally. IMPRESSION: 1. Venous angioma in the right basal ganglia, draining centrally. Associated magnetic susceptibility artifact suggests prior microbleeding, without acute hemorrhage.
[2016-10-12] MEDS: NS 1,000 ML IV SCH (03:18)
[2016-10-12 04:52] LABS: % IMMATURE GRANULYOCYTES 0.1 % (0.0-1.1); ABSOLUTE IMMATURE GRANULOCYTES 0.01 10^3/uL (0.00-0.10); ADD DIFF? NO; ADD MORPH? NO; ADD SCAN? NO; ATYPICAL LYMPHOCYTE FLAG 0 (0-99); FRAGMENT RBC FLAG 0 (0-99); HEMATOCRIT 43.2 % (40.0-51.0); LEFT SHIFT FLG 0 (0-99); LIPEMIA HEMOLYSIS FLAG 80 (0-99); MEAN CELL HEMOGLOBIN 28.1 pg (27.9-34.1); MEAN CELL HEMOGLOBIN CONCENTR. 32.4 g/dL (32.4-36.7); MEAN CELL VOLUME 86.6 fL (81.5-99.8); MEAN PLATELET VOLUME 11.7 fL (8.7-11.7); PLATELET CLUMPS FLAG 0 (0-99); PLATELET COUNT 209 10^3/uL (150-400); RED BLOOD CELL COUNT 4.99 10^6/uL (4.40-6.38); RED CELL DISTRIBUTION WIDTH 14.4 % (11.5-15.2)
[2016-10-12 05:30] LABS: ANION GAP 8 mEq/L (8-16); CALCIUM 8.5 mg/dL (8.5-10.4); CARBON DIOXIDE 24 mEq/l (22-31); CHLORIDE 106 mEq/L (97-110); CREATININE 0.8 mg/dL (0.7-1.3); GLOMERULAR FILTRATION RATE > 60; GLUCOSE 91 mg/dL (70-100); POTASSIUM 4.8 mEq/L (3.5-5.2); SODIUM 138 mEq/L (134-144)
--- NOTE | 2016-10-12 07:24 | NEUSURGPN ---
Assessment/Plan: Assessment: 51 yo male that was admitted to IM after a bout of abdominal pain and syncopal episode-CT showed a small BG lesion Plan: -BG lesion: MRI shows confirmed venous angioma-no further treatment needed in the hospital -pt will need to follow up with Dr Davis in 3 months for a recheck -images reviewed with the patient and he understands and agrees -we spoke about the small possibility of bleeding from this angioma -call with any questions or concerns -pt understands and agrees -NS to s/o Subjective: Awake and alert. NAD. Eating/drinking and voiding. No galindo/neck/chest/abd or gu complaints. No f/c/n/v/d. Objective: AAO x 3, PERRLA/EOMI no droop CN 2-12 grossly intact 5/5 BUE/BLE = +cms/nv intact x 4 no drift Neuro Check Frequency: per routine Urinary Catheter in Place: No - Physician Discussed Patient with : José Luis Patient Seen by : José Luis Neurosurgery Physical Exam - Vitals, I&O, Labs I and O 10/11/16 10/12/16 10/13/16 05:59 05:59 05:59 Intake Total 815 3250 Balance 815 3250 Weight 110.9 kg Intake: Oral (ml) 1150 IV Intake (ml) 1250 IV Infused (ml) 815 850 Ns 1,000 ml @ 100 mls/hr 585 650 IV CONT CESAR Rx#: [id number] Ciprofloxacin 400 mg/ 200 200 Dextrose 200 ml @ 200 mls /hr IV Q12HRS CESAR Rx#: [id number] Other: Intake Quantity Yes Sufficient Number of Voids Toilet 3 Number of Stools Toilet 1 Microbiology 10/10/16 23:59 Gastrointestinal Tract Panel (PCR) - Final Stool Vital Signs Temp Pulse Resp BP Pulse Ox 36.7 C 67 16 102/56 L 88 L 10/12/16 04:00 10/12/16 04:00 10/12/16 04:00 10/12/16 04:00 10/12/16 04:00 Laboratory Results 10/12/16 04:40 10/12/16 04:40 ICD10 Worksheet Patient Problems: Problems Problem Status Diagnosed Abdominal pain Acute Diarrhea Acute Nausea and vomiting Acute Syncope and collapse Acute Gastroenteritis Acute
[2016-10-12 08:28] VITALS: TEMP 97.9
[2016-10-12] MEDS ORDERED: TAMSULOSIN HCL 0.4 MG CAP PO SCH (09:00)
[2016-10-12] MEDS: CIPROFLOXACIN 400 MG/DEXTROSE 200 ML IV SCH (09:16)
[2016-10-12] MEDS: ENOXAPARIN 40 MG/0.4 ML SYR SC SCH (09:18)
--- NOTE | 2016-10-12 10:25 | DX ---
Portable Supine Abdomen HISTORY: Follow up small bowel obstruction. FINDINGS: Compare CT of October 10, 2016. Mild amounts of gas are scattered in the bowel, with no melody dence of obstruction. There are a few phleboliths in the pelvic cavity. No masses are identified. IMPRESSION: Resolution of small bowel obstruction.
[2016-10-12 11:20] VITALS: BP 124/76; PULSE 78; RESP 20; O2SAT 92
--- NOTE | 2016-10-12 12:38 | SOAPPROG ---
SOAP Progress Note Assessment/Plan: Assessment/Plan: 51 Y M syncopal episode, possible SBO (vs ileus s/p viral illness?). Reviewed AXR images. Advance to regular diet. If does well, ok to d/c to home. 10/12/16 12:37 Subjective: +gas and BM. No n/v. abd no longer hurts. Objective: Vital Signs Temp Pulse Resp BP Pulse Ox 36.6 C 78 20 124/76 H 92 10/12/16 11:19 10/12/16 11:19 10/12/16 11:19 10/12/16 11:19 10/12/16 11:19 Microbiology 10/10/16 23:59 Gastrointestinal Tract Panel (PCR) - Final Stool Laboratory Results 10/12/16 04:40 10/12/16 04:40 10/11/16 10/12/16 10/13/16 05:59 05:59 05:59 Intake Total 815 3250 400 Balance 815 3250 400 PT 14.0 SEC (12.0-15.0) 10/11/16 05:05 INR 1.09 (0.83-1.16) 10/11/16 05:05 alert, nad abd soft, nt, +BS ICD10 Worksheet Patient Problems: Problems Problem Status Diagnosed Abdominal pain Acute Diarrhea Acute Nausea and vomiting Acute Syncope and collapse Acute Gastroenteritis Acute
--- NOTE | 2016-10-13 05:54 | GDS ---
[f rep st] DISCHARGE SUMMARY DISCHARGE DIAGNOSES: 1. Small bowel obstruction with mesenteric edema, suspect infectious. 2. Basal ganglia venous angioma. 3. Benign prostatic hypertrophy with urinary tract infection. 4. Asperger syndrome. 5. Syncope due to hypovolemia. 6. Obesity, BMI 34. HISTORY: The patient is a 51-year-old male who developed a syncopal episode while he was in the [facility] kout line at [employer]. Earlier that day, he had developed nausea, vomiting, and diarrhea. His syncope was very brief with immediate return of consciousness. There was no injury. EMS was called and he was brought to the emergency room. In workup of his gastroenterology condition, he got a CT scan of the abdomen and pelvis, which showed a possible small bowel obstruction and associated small bowel and edematous mesentery. There was a question of a possible volvulus. The stomach was moderately distended. Surgery was consulted and [facility] decided to watch him conservatively and he rapidly improved and they did not think any surgical in tervention was necessary. He does have a positive family history for Crohn disease and that is also considered, although he had rapid resolution of symptoms and has never had anything like this before in the past. He was treated empirically with IV ciprofloxacin. His stool studies were negative. He had an NG tube placed with no output. We were able to advance his diet and he felt great and back t o normal on the day of discharge. Incidentally noted on his admission head CT was a lesion in his basal ganglia. Neurosurgery was cons ulted and he underwent MRI, which showed this to be a venous angioma. Recommendation is follow up [facility] Neurosurgery as an outpatient in 3 months for recheck. Also incidentally noted on his CAT scan was significant BPH. His urinalysis was positive and consist ent with a UTI. Ciprofloxacin used for his GI illness would also cover urinary tract infection. On further questioning, he does reveal difficulties with urination, including frequency and other sympto ms consistent with BPH. He was started on Flomax. It is recommended he see Urology as an outpatient . DISCHARGE MEDICATIONS: Please see computer record for full detailed list. New medications: 1. Ciprofloxacin 500 mg p.o. b.i.d. x7 days. 2. Flomax 0.4 mg p.o. daily. ADDITIONAL DISCHARGE INSTRUCTIONS: 1. Outpatient followup with Urology for enlarged prostate. 2. Outpatient followup with Neurology for venous angioma of the brain in 3 months. Greater than 30 minutes' time was spent arranging this discharge. Patient seen and examined by me on the day of discharge. /[id number]/MODL
== END 2016-10-12 14:54 | disposition home or self-care (01) | DRG 389 ==
LOC: EDUNIT# → EEVIPCON 16:53 → F2W 22:35
PROVIDERS: ADMIT Hospitalist; ATTEND Internal Medicine
DX: K56.60 Unspecified intestinal obstruction (principal); N39.0 Urinary tract infection, site not specified; F84.5 Asperger's syndrome; R55 Syncope and collapse; D18.09 Hemangioma of other sites; N40.1 Benign prostatic hyperplasia with lower urinary tract symptoms; E86.1 Hypovolemia; E66.9 Obesity, unspecified; Z68.34 Body mass index [BMI] 34.0-34.9, adult
CPT/HCPCS: 82947-QW; 96374; A9585; J0744; J1650; J2405; J2550; Q9967

== ENCOUNTER 2017-11-25 16:44 | Emergency (ER) | payer MEDICAID ==
[2017-11-25 16:52] VITALS: RESP 18; TEMP 99.7; O2SAT 92
--- NOTE | 2017-11-25 16:58 | EDPHY ---
H & P Stated Complaint: st, fever, sob Time Seen by Provider: 11/25/17 16:56 HPI/ROS: HPI: This is a 52-year-old male who presents with Chief Complaint: st, fever Location: Throat Quality: Sore Duration: Since (2.5 days) Signs and Symptoms: + fever, no cough, + fever, + chills, no neck stiffness, no abdominal pain, no nausea, no vomiting, no wheezing, no chest pain, no difficulty swallowing, no drooling Timing: Acute, constant Severity: Moderate Context: Patient works for the [employer] reports that on he had sudden onset of a sore throat, fever, fatigue and chills. He has been drinking fluids and taking Tylenol last dose 1 hr prior to arrival without any improvement. He reports that he believes that he has strep as he was diagnosed with it 1-2 years ago. He did not receive his influenza vaccine this year. He denies any abdominal pain/chest pain/cough/wheezing/neck stiffness. He is able to eat and drink fluids. Modifying Factors: See above Comment: ROS: see HPI Constitutional: + fever, + chills, no weight loss Eyes: No blurred vision Respiratory: No shortness of breath, no cough Cardiovascular: No chest pain Gastrointestinal: No nausea, no vomiting, no diarrhea Genitourinary: No dysuria Extremities: No myalgias Neurologic: No weakness, no numbness Skin: No rashes Hematologic: No bruising, no bleeding MEDICAL/SURGICAL/SOCIAL HISTORY: Medical history: anxiety, asperger's; kidney stones; strep Surgical history: Left ankle surgery Social history: Employed. CONSTITUTIONAL: Ill but nontoxic appearing adult white male, polite and cooperative, awake and alert, no obvious distress HEENT: Atraumatic and normocephalic, PERRL, EOMI. Tympanic membranes clear. Oropharynx clear, tonsils no hypertrophy, uvula midline, moderate posterior pharynx erythema but no edema, no exudate and moist pink mucosa. Airway patent. Spotty cervical anterior lymphadenopathy. No meningismus. Cardiovascular: Normal S1/S2, mild tachycardia, regular rhythm, without murmur rub or gallop. PULMONARY/CHEST: Symmetrical and nontender. Clear to auscultation bilaterally. Good air movement. No accessory muscle usage. ABDOMEN: Soft, nondistended, nontender, no rebound, no guarding, no peritoneal signs, no masses or organomegaly. No CVAT. EXTREMITIES: 2/2 pulses, strength 5/5, no deformities, no clubbing, no cyanosis or edema. NEUROLOGICAL: no focal neuro deficits. GCS 15. SKIN: Warm and dry, no erythema. no rash. Good capillary refill. Source: Patient Exam Limitations: No limitations - Personal History Current Tetanus/Diphtheria Vaccine: Yes Current Tetanus Diphtheria and Acellular Pertussis (TDAP): Yes Tetanus Vaccine Date: 2010 - Medical/Surgical History Hx Asthma: No Hx Chronic Respiratory Disease: No Hx Diabetes: No Hx Cardiac Disease: No Hx Renal Disease: No Hx Cirrhosis: No Hx Alcoholism: No Hx HIV/AIDS: No Hx Splenectomy or Spleen Trauma: No Other PMH: anxiety, asperger's; kidney stones; Left ankle sx, strep, - Social History Smoking Status: Never smoked Constitutional: Initial Vital Signs Temperature (C) 37.6 C 11/25/17 16:50 Heart Rate 110 H 11/25/17 16:50 Respiratory Rate 18 11/25/17 16:50 Blood Pressure 142/88 H 11/25/17 16:50 O2 Sat (%) 92 11/25/17 16:50 O2 Delivery Mode Room Air Allergies/Adverse Reactions: No Known Allergies Allergy (Verified 11/25/17 16:50) Home Medications: Medication Instructions Recorded Amoxicillin/Clavulanate Pot 875 mg PO BID #14 tab 11/25/17 [Augmentin 875 MG TAB (*)] Tylenol 325mg (*) 11/25/17 Medical Decision Making ED Course/Re-evaluation: Strep test, influenza test, IV fluids, IV medications ordered Given 1 L normal saline for mild tachycardia upon arrival, IV Toradol 30 mg, IV Decadron 10 mg No signs of airway compromise/Jose's angina/tonsillar abscess/respiratory distress/meningitis Strep and influenza negative High clinical suspicion for strep. Sent for culture. lung exam benign but showing bronchitis symptoms. Will treat with Augmentin, supportive care. Patient politely declined chest x- ray and albuterol inhaler. Reassessed patient; who reports that he feels 50% better. This patient was seen under the supervision of my secondary supervising physician. I evaluated care for this patient independently. Differential Diagnosis: Differential diagnosis includes but is not limited to upper respiratory infection, strep pharyngitis, influenza, viral syndrome, pneumonia. - Data Points Laboratory Results: 11/25/17 11/25/17 11/25/17 Unknown 17:10 16:50 Nasal Influenza A PCR NEGATIVE FOR FLU A (NEGATIVE) Nasal Influenza B PCR NEGATIVE FOR FLU B (NEGATIVE) Group A Strep Screen NEGATIVE (NEGATIVE) Group A Strep DNA Pending Medications Given: Discontinued Medications Dexamethasone (Decadron Injection) 10 mg IVP EDNOW ONE Stop: 11/25/17 17:03 Last Admin: 11/25/17 17:17 Dose: 10 mg Sodium Chloride (Ns) 1,000 mls @ 0 mls/hr IV EDNOW ONE; Wide Open PRN Reason: Protocol Stop: 11/25/17 17:03 Last Admin: 11/25/17 17:11 Dose: 1,000 mls Ketorolac Tromethamine (Toradol) 30 mg IVP EDNOW ONE Stop: 11/25/17 17:03 Last Admin: 11/25/17 17:17 Dose: 30 mg Departure - Departure Disposition: Home, Routine, Self-Care Clinical Impression: Streptococcal pharyngitis, Bronchitis Condition: Good Instructions: Amoxicillin/Clavulanate Potassium (By mouth), Strep Throat (ED), Acute Bronchitis (ED) Additional Instructions: Rapid strep test today was negative but there is high clinical suspicion for strep throat with early bronchitis. Will treat with Augmentin. Please take full 7 day course. Take Tylenol 650 mg every 4 hours and/or Ibuprofen 600 mg every 8 hours with food as needed for pain. Consume a minimum of 8-10 glasses of water or electrolyte fluid replacement drinks that include Gatorade, Powerade, Pedialyte. Eat a bland diet for the next 48 hours and then slowly advance as tolerated. Return to the ER immediately if you cannot swallow, have drooling, fevers, neck stiffness, cannot open your jaw, or any other symptoms that concern you. Referrals: [facility],. [Clinic] - As per Instructions Prescriptions: Amoxicillin/Clavulanate Pot [Augmentin 875 MG TAB (*)] 875 mg PO BID #14 tab
[2017-11-25] MEDS ORDERED: KETOROLAC 30 MG/1 ML SDV IVP ONE (17:02)
[2017-11-25] MEDS ORDERED: DEXAMETHASONE 10 MG/ML VIAL IVP ONE (17:02)
[2017-11-25] MEDS ORDERED: NS 1,000 ML IV ONE (17:02)
[2017-11-25 18:34] VITALS: BP 141/90; PULSE 84
== END 2017-11-25 18:35 | disposition home or self-care (01) ==
DX: J02.0 Streptococcal pharyngitis (principal); J20.9 Acute bronchitis, unspecified; E86.9 Volume depletion, unspecified
CPT/HCPCS: 96374; J1100; J1885

== ENCOUNTER 2017-12-13 13:39 | Inpatient (IN) | payer MEDICAID ==
--- NOTE | 2017-12-13 14:16 | EDPHY ---
H & P Stated Complaint: States fever; seen here earlier this month for same thing Time Seen by Provider: 12/13/17 14:13 HPI/ROS: CHIEF COMPLAINT: Fever, shaking chills HISTORY OF PRESENT ILLNESS: The patient presents the ED with a 1 day history of fever and shaking chills. The patient denies additional acute complaints. He was seen in the emergency department 3 weeks ago with similar symptoms discharged with antibiotics for possible bronchitis. He finished his antibiotics 1 week ago. The patient denies any history of dental work or recent surgery. He denies any history of IV drug use. The patient did complain of some acute low back pain. REVIEW OF SYSTEMS: A comprehensive 10 point review of systems is otherwise negative aside from elements mentioned in the history of present illness. Source: Patient Exam Limitations: No limitations - Personal History Current Tetanus Diphtheria and Acellular Pertussis (TDAP): Yes Tetanus Vaccine Date: 2010 - Medical/Surgical History Hx Asthma: No Hx Chronic Respiratory Disease: No Hx Diabetes: No Hx Cardiac Disease: No Hx Renal Disease: No Hx Cirrhosis: No Hx Alcoholism: No Hx HIV/AIDS: No Hx Splenectomy or Spleen Trauma: No Other PMH: anxiety, asperger's; kidney stones; Left ankle sx, strep, - Social History Smoking Status: Never smoked - Physical Exam Exam: General Appearance: Alert, no distress Eyes: Pupils equal and round no pallor or injection ENT, Mouth: Mucous membranes moist Respiratory: There are no retractions, lungs are clear to auscultation Cardiovascular: Regular rate and rhythm, no obvious murmur Gastrointestinal: Abdomen is soft and nontender, no masses, bowel sounds normal Back: Patient does appear to have CVA tenderness and tenderness to palpation in the lower lumbar spine Neurological: A&O, normal motor function, normal sensory exam, normal cranial nerves Skin: Warm and dry, no rashes Musculoskeletal: Neck is supple nontender Extremities: symmetrical, full range of motion Constitutional: Initial Vital Signs Temperature (C) 36.8 C 12/13/17 13:40 Heart Rate 106 H 12/13/17 13:40 Respiratory Rate 18 12/13/17 13:40 Blood Pressure 138/87 H 12/13/17 13:40 O2 Sat (%) 95 12/13/17 13:40 O2 Delivery Mode Room Air Allergies/Adverse Reactions: No Known Allergies Allergy (Verified 12/13/17 13:45) Home Medications: Medication Instructions Recorded Acetaminophen [Tylenol ES 500 mg 500 - 1,000 mg PO Q6 PRN 12/13/17 (*)] Medical Decision Making - Diagnostics Imaging Results: Imaging Impressions Abdomen/Pelvis CT 12/13/17 15:16 Impression: 1. 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 Appearance is not significantly changed over serial imaging dating back to 2013. 2. Bilateral nonobstructive nephrolithiasis. 3. Prostatomegaly. Recommend correlation with PSA. Findings were communicated by telephone with Dr. Pineda 4:00 PM 12/13/2017 ED Course/Re-evaluation: The patient presents to the ED with fever and shaking chills for the past day. The patient had a fever and sore throat approximately 2 and half weeks ago and was treated with Augmentin for concerns about group a strep. The patient has been off antibiotics for the past week. The patient does have a history of nephrolithiasis. The patient has been having some arthralgias and low back pain. In the emergency department the patient was noted to have an elevated sed rate and CRP. He has leukocytosis and an elevated lactate of 2.1. The patient's urine demonstrates evidence of infection. Blood cultures and urine cultures are obtained. The patient was started on IV ceftriaxone. A CT scan of the abdomen pelvis without contrast was obtained to evaluate for possible staghorn calculus in the setting of pyelonephritis. The patient did received 2 L of normal saline in the emergency department. A repeat venous lactate has been ordered as the patient does meet criteria for severe sepsis with SIRS (leukocytosis and tachycardia, +reported fever at home) and urinary tract infection. The patient will be admitted to the hospital for further evaluation and management. Consultation is made with the hospitalist service at 4:[address] scan of the abdomen pelvis demonstrates no obvious staghorn calculus or obstructing nephrolithiasis. Repeat lactic acid is 1.6 Differential Diagnosis: Differential diagnosis considered includes bacteremia, sepsis, severe sepsis, pyelonephritis, infected nephrolithiasis - Data Points Laboratory Results: Laboratory Results 12/13/17 14:35 12/13/17 14:35 12/13/17 12/13/17 12/13/17 14:35 14:35 14:35 WBC 15.31 10^3/uL H 10^3/uL (3.80-9.50) RBC 5.65 10^6/uL 10^6/uL (4.40-6.38) Hgb 16.0 g/dL g/dL (13.7-17.5) Hct 47.4 % % (40.0-51.0) MCV 83.9 fL fL (81.5-99.8) MCH 28.3 pg pg (27.9-34.1) MCHC 33.8 g/dL g/dL (32.4-36.7) RDW 14.5 % % (11.5-15.2) Plt Count 258 10^3/uL 10^3/uL (150-400) MPV 11.4 fL fL (8.7-11.7) Neut % (Auto) 83.3 % H % (39.3-74.2) Lymph % (Auto) 9.8 % L % (15.0-45.0) [place] % (Auto) 5.8 % % (4.5-13.0) Eos % (Auto) 0.4 % L % (0.6-7.6) Baso % (Auto) 0.4 % % (0.3-1.7) Nucleat RBC Rel Count 0.0 % % (0.0-0.2) Absolute Neuts (auto) 12.75 10^3/uL H 10^3/uL (1.70-6.50) Absolute Lymphs (auto) 1.50 10^3/uL 10^3/uL (1.00-3.00) Absolute Monos (auto) 0.89 10^3/uL H 10^3/uL (0.30-0.80) Absolute Eos (auto) 0.06 10^3/uL 10^3/uL (0.03-0.40) Absolute Basos (auto) 0.06 10^3/uL 10^3/uL (0.02-0.10) Absolute Nucleated RBC 0.00 10^3/uL 10^3/uL (0-0.01) Immature Gran % 0.3 % % (0.0-1.1) Immature Gran # 0.05 10^3/uL 10^3/uL (0.00-0.10) ESR 4 MM/HR MM/HR (0-20) VBG Lactic Acid Sodium 138 mEq/L mEq/L (135-145) Potassium 4.5 mEq/L mEq/L (3.5-5.2) Chloride 101 mEq/L mEq/L (97-110) Carbon Dioxide 23 mEq/l mEq/l (22-31) Anion Gap 14 mEq/L mEq/L (8-16) BUN 17 mg/dL mg/dL (7-23) Creatinine 0.8 mg/dL mg/dL (0.7-1.3) Estimated GFR > 60 Glucose 114 mg/dL H mg/dL (70-100) Calcium 8.9 mg/dL mg/dL (8.5-10.4) C-Reactive Protein 78.1 mg/L H mg/L (<10.0) Urine Color YELLOW Urine Appearance MODERATELY TURBID Urine pH 6.0 (5.0-7.5) Ur Specific [place] 1.025 (1.002-1.030) Urine Protein 1+ H (NEGATIVE) Urine Ketones NEGATIVE (NEGATIVE) Urine Blood NEGATIVE (NEGATIVE) Urine Nitrate POSITIVE H (NEGATIVE) Urine Bilirubin NEGATIVE (NEGATIVE) Urine Urobilinogen 2.0 EU H EU (0.2-1.0) Ur Leukocyte Esterase 3+ H (NEGATIVE) Urine RBC 5-10 /hpf H /hpf (0-3) Urine WBC 50-182 /hpf H /hpf (0-3) Ur Epithelial Cells TRACE /lpf /lpf (NONE-1+) Urine Mucus 1+ /lpf /lpf (NONE-1+) Urine Glucose NEGATIVE (NEGATIVE) 12/13/17 14:35 WBC RBC Hgb Hct MCV MCH MCHC RDW Plt Count MPV Neut % (Auto) Lymph % (Auto) [place] % (Auto) Eos % (Auto) Baso % (Auto) Nucleat RBC Rel Count Absolute Neuts (auto) Absolute Lymphs (auto) Absolute Monos (auto) Absolute Eos (auto) Absolute Basos (auto) Absolute Nucleated RBC Immature Gran % Immature Gran # ESR VBG Lactic Acid 2.3 mmol/L H mmol/L (0.7-2.1) Sodium Potassium Chloride Carbon Dioxide Anion Gap BUN Creatinine Estimated GFR Glucose Calcium C-Reactive Protein Urine Color Urine Appearance Urine pH Ur Specific [place] Urine Protein Urine Ketones Urine Blood Urine Nitrate Urine Bilirubin Urine Urobilinogen Ur Leukocyte Esterase Urine RBC Urine WBC Ur Epithelial Cells Urine Mucus Urine Glucose Medications Given: Discontinued Medications Ceftriaxone Sodium 1 gm/ (Sterile Water) 10 mls @ 150 mls/hr IV EDNOW ONE PRN Reason: Protocol Stop: 12/13/17 15:18 Last Admin: 12/13/17 15:26 Dose: 10 mls Sodium Chloride (Ns) 1,000 mls @ 0 mls/hr IV EDNOW ONE; Wide Open PRN Reason: Protocol Stop: 12/13/17 15:17 Last Admin: 12/13/17 15:25 Dose: 1,000 mls Sodium Chloride (Ns) 1,000 mls @ 0 mls/hr IV EDNOW ONE; Wide Open PRN Reason: Protocol Stop: 12/13/17 15:17 Last Admin: 12/13/17 15:26 Dose: 1,000 mls Ceftriaxone Sodium/Dextrose (Rocephin 1 Gm (Premix)) 50 mls @ 100 mls/hr IV EDNOW ONE Stop: 12/13/17 15:44 Last Admin: 12/13/17 16:53 Dose: Not Given Ketorolac Tromethamine (Toradol) 30 mg IVP EDNOW ONE Stop: 12/13/17 15:18 Last Admin: 12/13/17 15:19 Dose: 30 mg Departure - Departure Disposition: [facility] Inpatient Acute Clinical Impression: Severe sepsis, Urinary tract infection Condition: Good
[2017-12-13 14:45] LABS: PLATELET COUNT 258 10^3/uL (150-400)
[2017-12-13] MEDS ORDERED: KETOROLAC 30 MG/1 ML SDV ONE (15:11)
[2017-12-13] MEDS ORDERED: cefTRIAXone 1 GM in STERILE WATER INJ 10 ML IV ONE (15:15)
[2017-12-13] MEDS ORDERED: NS 1,000 ML IV ONE ×2 (15:16)
[2017-12-13] MEDS ORDERED: KETOROLAC 30 MG/1 ML SDV IVP ONE (15:17)
[2017-12-13] MEDS ORDERED: cefTRIAXone 1 GM/DEXTROSE 1 GM/50 ML BAG IV ONE (15:22)
[2017-12-13] MEDS ORDERED: ONDANSETRON 4 MG/2 ML VIAL IVP PRN (17:00)
[2017-12-13] MEDS ORDERED: ACETAMINOPHEN 325 MG TAB PO PRN (17:00)
[2017-12-13] MEDS ORDERED: oxyCODONE IR 5 MG TAB PO PRN (17:00)
[2017-12-13] MEDS ORDERED: NS 1,000 ML IV SCH (17:00)
[2017-12-13] MEDS ORDERED: ONDANSETRON DISINTEGRATING 4 MG TAB PO PRN (17:00)
--- NOTE | 2017-12-13 17:10 | PDGENHP ---
History and Physical - Chief Complaint Fever, Chills - History of Present Illness The patient presented with a 1 day history of fever and shaking chills. Also some reported left sided flank pain, although he reports that this is baseline and with no changes. He reports low urine output over the past day. No increased urinary frequency, urgency, or dysuria. He denies any resp sx's, no cough, no sob, no n/v/d, no rash. He is not confused. He is found to have tachycardia and his urine shows likely infection. BMP is unremarkable. CBC shows leukocytosis. About a month ago he had pharyngits and was treated with a week of Augmentin which he completed and did well for 2-e weeks. he does not have any throat pain. The patient denies any history of dental work or recent surgery. He denies any history of IV drug use. The patient did complain of some acute low back pain. 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 -Lactic Acid is 2.3 ED: IVF, Rocephin History Information - Allergies/Home Medication List Allergies/Adverse Reactions: No Known Allergies Allergy (Verified 12/13/17 13:45) Home Medications: Acetaminophen [Tylenol ES 500 mg (*)] 500 - 1,000 mg PO Q6 PRN 12/13/17 [Last Taken 12/13/17 13:00] I have personally reviewed and updated: medical history, social history - Past Medical History Additional medical history: Asperger syndrome, anxiety. 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 Review of Systems Review of Systems: ROS: 10pt was reviewed & negative except for what was stated in HPI & below Physical Exam Physical Exam: Temp Pulse Resp BP Pulse Ox 37.4 C 106 H 18 129/71 H 92 12/13/17 15:50 12/13/17 15:50 12/13/17 15:50 12/13/17 15:50 12/13/17 15:50 Constitutional: no apparent distress, not in pain Eyes: PERRL, EOMI Ears, Nose, Mouth, Throat: hard of hearing Cardiovascular: regular rate and rhythym, No JVD, No edema Respiratory: no respiratory distress, no rales or rhonchi, clear to auscultation Gastrointestinal: normoactive bowel sounds, soft, non-tender abdomen, No distension Skin: warm Musculoskeletal: full muscle strength, other (no cva tenderness) Neurologic: AAOx3 Psychiatric: interacting appropriately, not anxious, not encephalopathic Lymph, Heme, Immunologic: No petechiae Lab Data & Imaging Review 12/13/17 14:35 12/13/17 14:35 WBC 15.31 10^3/uL (3.80-9.50) H 12/13/17 14:35 RBC 5.65 10^6/uL (4.40-6.38) 12/13/17 14:35 Hgb 16.0 g/dL (13.7-17.5) 12/13/17 14:35 Hct 47.4 % (40.0-51.0) 12/13/17 14:35 MCV 83.9 fL (81.5-99.8) 12/13/17 14:35 MCH 28.3 pg (27.9-34.1) 12/13/17 14:35 MCHC 33.8 g/dL (32.4-36.7) 12/13/17 14:35 RDW 14.5 % (11.5-15.2) 12/13/17 14:35 Plt Count 258 10^3/uL (150-400) 12/13/17 14:35 MPV 11.4 fL (8.7-11.7) 12/13/17 14:35 Neut % (Auto) 83.3 % (39.3-74.2) H 12/13/17 14:35 Lymph % (Auto) 9.8 % (15.0-45.0) L 12/13/17 14:35 [place] % (Auto) 5.8 % (4.5-13.0) 12/13/17 14:35 Eos % (Auto) 0.4 % (0.6-7.6) L 12/13/17 14:35 Baso % (Auto) 0.4 % (0.3-1.7) 12/13/17 14:35 Nucleat RBC Rel Count 0.0 % (0.0-0.2) 12/13/17 14:35 Absolute Neuts (auto) 12.75 10^3/uL (1.70-6.50) H 12/13/17 14:35 Absolute Lymphs (auto) 1.50 10^3/uL (1.00-3.00) 12/13/17 14:35 Absolute Monos (auto) 0.89 10^3/uL (0.30-0.80) H 12/13/17 14:35 Absolute Eos (auto) 0.06 10^3/uL (0.03-0.40) 12/13/17 14:35 Absolute Basos (auto) 0.06 10^3/uL (0.02-0.10) 12/13/17 14:35 Absolute Nucleated RBC 0.00 10^3/uL (0-0.01) 12/13/17 14:35 Immature Gran % 0.3 % (0.0-1.1) 12/13/17 14:35 Immature Gran # 0.05 10^3/uL (0.00-0.10) 12/13/17 14:35 ESR 4 MM/HR (0-20) 12/13/17 14:35 VBG Lactic Acid 1.6 mmol/L (0.7-2.1) D 12/13/17 16:50 Sodium 138 mEq/L (135-145) 12/13/17 14:35 Potassium 4.5 mEq/L (3.5-5.2) 12/13/17 14:35 Chloride 101 mEq/L (97-110) 12/13/17 14:35 Carbon Dioxide 23 mEq/l (22-31) 12/13/17 14:35 Anion Gap 14 mEq/L (8-16) 12/13/17 14:35 BUN 17 mg/dL (7-23) 12/13/17 14:35 Creatinine 0.8 mg/dL (0.7-1.3) 12/13/17 14:35 Estimated GFR > 60 12/13/17 14:35 Glucose 114 mg/dL (70-100) H 12/13/17 14:35 Calcium 8.9 mg/dL (8.5-10.4) 12/13/17 14:35 C-Reactive Protein 78.1 mg/L (<10.0) H 12/13/17 14:35 Urine Color YELLOW 12/13/17 14:35 Urine Appearance MODERATELY TURBID 12/13/17 14:35 Urine pH 6.0 (5.0-7.5) 12/13/17 14:35 Ur Specific [place] 1.025 (1.002-1.030) 12/13/17 14:35 Urine Protein 1+ (NEGATIVE) H 12/13/17 14:35 Urine Ketones NEGATIVE (NEGATIVE) 12/13/17 14:35 Urine Blood NEGATIVE (NEGATIVE) 12/13/17 14:35 Urine Nitrate POSITIVE (NEGATIVE) H 12/13/17 14:35 Urine Bilirubin NEGATIVE (NEGATIVE) 12/13/17 14:35 Urine Urobilinogen 2.0 EU (0.2-1.0) H 12/13/17 14:35 Ur Leukocyte Esterase 3+ (NEGATIVE) H 12/13/17 14:35 Urine RBC 5-10 /hpf (0-3) H 12/13/17 14:35 Urine WBC 50-182 /hpf (0-3) H 12/13/17 14:35 Ur Epithelial Cells TRACE /lpf (NONE-1+) 12/13/17 14:35 Urine Mucus 1+ /lpf (NONE-1+) 12/13/17 14:35 Urine Glucose NEGATIVE (NEGATIVE) 12/13/17 14:35 Assessment & Plan Assessment: #Sepsis (tachycardia, Leukocytosis, elevated lactic acid, infection source Urine ) #Tachycardia #Dehydration #Urinary tract infection (Acute) Plan: -Admit inpatient -Cont [place] -Has already received IVF in the E.D, will cont additional but a lower rate -he does not have any CVA tenderness, CT abd/pelvis unremarkable for acute findings -Recheck lactic acid -Lovenox for DVT proph -Full Code total critical care time in this patient with Sepsis and dehydration is 65 minutes
[2017-12-14 05:06] LABS: PLATELET COUNT 189 10^3/uL (150-400)
[2017-12-14 07:43] VITALS: BP 120/73; PULSE 92; RESP 18; TEMP 98.4; O2SAT 92
[2017-12-14] MEDS ORDERED: ENOXAPARIN 40 MG/0.4 ML SYR SC SCH (09:00)
[2017-12-14] MEDS ORDERED: cefTRIAXone 1 GM in STERILE WATER INJ 10 ML IV SCH (09:00)
[2017-12-14] MEDS ORDERED: KETOROLAC 30 MG/1 ML SDV IVP ONE (09:12)
--- NOTE | 2017-12-14 16:47 | GDS ---
[f rep st] DISCHARGE SUMMARY DISCHARGE DIAGNOSES: Include: 1. Sepsis secondary to urinary source. 2. Acute urinary tract infection. HISTORY OF PRESENT ILLNESS: A pleasant 52-year-old male presenting with fevers, chills, and dysuria. For details of the patient's initial presentation, please see the history and physical dated 2017. CONSULTATIVE SERVICES: None. PROCEDURES: On 12/13/2017, patient had a CT of the abdomen that showed bilateral nonobstructive neph rolithiasis. HOSPITAL COURSE: Sepsis. The patient presented with tachycardia, leukocytosis, and urinary symptoms . Urinalysis was abnormal and sent for culture. Patient was empirically started on ceftriaxone. Th e morning after presentation, patient is feeling markedly better and is insisting on returning home. We have empirically chosen p.o. levofloxacin for disposition, although cultures are preliminary no atif gruber at the time of his discharge. Will follow these cultures and call the patient if we isolate an organism that is not sensitive to levofloxacin. He will otherwise complete a full 7-day course of a ntibiotics. We have instructed him to establish and follow with a primary care provider in the next 7-10 days for post disposition followup. MEDICATIONS: At the time of disposition, please reference the med rec printed on 12/14/2017. PENDING STUDIES: Include blood and urine cultures, which are preliminary no growth to date. FOLLOWUP APPOINTMENTS: Include with a [id number] primary care provider. Resources have been provided by Case Management. I spent greater than 30 minutes in the planning and coordination of this discharge. /[id number]/MODL
--- NOTE | 2017-12-15 07:00 | PDMN ---
Medical Necessity Medical necessity: est los>s2mn for sepsis w/tachycardia, leukocytosis, elevated lactic acid, infection source urine, and dehydration; admit for IV abx , and IVF; per order and H&P 12/13/17
--- NOTE | 2017-12-15 12:11 | HOSPPROG ---
Hospitalist Progress Note Assessment/Plan: Urine culture reviewed post -discharge - growing Klebsiella sensitive to discharge Levofloxacin. Objective: Vital Signs Temp Pulse Resp BP Pulse Ox 36.9 C 92 18 120/73 92 12/14/17 07:43 12/14/17 07:43 12/14/17 07:43 12/14/17 07:43 12/14/17 07:43 Laboratory Results 12/14/17 04:26 12/14/17 04:26 12/14/17 12/15/17 12/16/17 05:59 05:59 05:59 Intake Total 3150 Balance 3150 ICD10 Worksheet Patient Problems: Problems Problem Status Onset Abdominal pain Acute Diarrhea Acute Gastroenteritis Acute Nausea and vomiting Acute Severe sepsis Acute Syncope and collapse Acute Urinary tract infection Acute
== END 2017-12-14 11:20 | disposition home or self-care (01) | DRG 872 ==
LOC: F3E 17:26
PROVIDERS: ADMIT Family Medicine; ATTEND Family Medicine
DX: A41.9 Sepsis, unspecified organism (principal); N39.0 Urinary tract infection, site not specified; E86.0 Dehydration
CPT/HCPCS: 96374; J0696; J1650; J1885

== ENCOUNTER 2017-12-15 16:54 | Inpatient (IN) | payer MEDICAID ==
[2017-12-15] MEDS ORDERED: ONDANSETRON DISINTEGRATING 4 MG TAB PO ONE (17:01)
--- NOTE | 2017-12-15 17:24 | EDPHY ---
General Time Seen by Provider: 12/15/17 17:14 Narrative: CHIEF COMPLAINT: Fever, chills, shaking, vomiting HISTORY OF PRESENT ILLNESS: Patient complains of fever, shaking, chills, vomiting. Symptoms started earlier this morning. He was discharged home yesterday around 12:00 p.m. With a diagnosis of urosepsis. Urine culture was sensitive to many antibiotics, he was discharged home on Levaquin. First dose was given this morning. Earlier in the morning he awoke feeling very had a fever. He took his temperature and it was 101 F. He then began shaking and felt chilled. Says he took Tylenol the symptoms improved, but then he vomited twice. He has been able to keep clear liquids down but no food. He has not had any food since yesterday afternoon. He has no neck pain or stiffness. No headache. No chest pain. No cough. No sore throat. No abdominal pain. He no longer has any urinary complaints. He does have some myalgias and malaise. No other associated complaints or modifying factors. REVIEW OF SYSTEMS: Ten systems reviewed and are negative unless otherwise noted in the HPI PCP: None yet Will establish on December 24 SPECIALISTS: None PAST MEDICAL HISTORY: Recent admission for urosepsis PAST SURGICAL HISTORY: No recent surgeries SOCIAL HISTORY: Never smoker. No drug or alcohol use. Works for the [employer] FAMILY HISTORY: Noncontributory EXAMINATION General Appearance: Alert, no distress. Mild diaphoresis Head: normocephalic, atraumatic Eyes: Pupils equal and round, no conjunctival pallor or injection ENT, Mouth: Mucous membranes moist. Uvula is midline. The airway is widely patent. There is no pharyngeal erythema or edema. Neck: Normal inspection, supple, non-tender. Respiratory: Lungs are clear to auscultation.No wheezing, rhonchi or crackles Cardiovascular: Regular rate and rhythm. No murmur. Pulses are intact radial and DP symmetrically at 2+. Gastrointestinal: Abdomen is soft and nontender. No tympany. No rigidity. No CVA tenderness. Back: non-tender, no bony abnormalities Neurological: A&O, nonfocal, normal gait Skin: Warm and mildly diaphoretic. no rash. No petechiae or purpura Extremities: Nontender, no pedal edema Psychiatric: Mood and affect normal DIFFERENTIAL DIAGNOSES: Including but not limited to fever, nausea vomiting, gastritis, enteritis, viral syndrome, influenza, UTI MDM: 5:20 p.m. Ongoing fever with chills and 2 episodes of vomiting today. Patient is very mildly tachycardic at 101 beats per minute. He is not tachypneic. He is not hypoxemic. He is afebrile. He does not meet SIRS criteria. I have reviewed his H&P a discharge summary from his recent admission to this hospital. I discussed the case with Dr. Morillo. I have ordered IV placement, IV fluid and laboratory studies. I will recheck his urinalysis and I have performed a flu swab. He is awake and alert in no acute distress. 6:15 p.m. Patient re-evaluated. He is mildly perseverating and asking for me to check his temperature. I did and it is 37.1. He remains afebrile. His CBC is completely within normal limits. His chemistry is also within normal limits. Urinalysis has not been sent. Influenza swab is pending. 7:00 p.m. Patient re-evaluated. Still perseverating diaphoretic. Still afebrile. He is receiving IV fluid influenza test is still pending. 7:45 p.m. Influenza and RSV test are negative. I have re-evaluated the patient. He reports no improvement with Toradol Ativan. No improved with IV fluid. He still perseverating. Unclear etiology at this time but I have discussed with Dr. Morillo. We reviewed the case together we are both in agreement that the patient is not stable for discharge home. At this time is vital signs still remain within normal limits without SIRS criteria met. 7:49 p.m. Case discussed with hospitalist Dr. Drake. She will admit the patient to her service. We discussed the negative blood cultures from prior admission. We discussed that we did not order blood cultures at this time and she agrees with the plan thus far. She knows that a lactic acid has been ordered and is pending. Patient admitted to her service in stable condition with IV fluid resuscitation still ongoing. 8:10 p.m. Lactic acid is negative. He continues to received IV fluid and is admitted stable condition. SUPERVISION: Patient was independently examined, but I discussed the case with my secondary supervising physician . Patient was evaluated and examined in conjunction with my secondary supervising physician as documented. We have both examined the patient. - History Smoking Status: Never smoked - Objective Vital Signs: Initial Vital Signs Temperature (C) 98.1 F 12/15/17 16:58 Heart Rate 101 H 12/15/17 16:58 Respiratory Rate 20 12/15/17 16:58 Blood Pressure 170/97 H 12/15/17 16:58 O2 Sat (%) 96 12/15/17 16:58 O2 Delivery Mode Room Air Allergies/Adverse Reactions: No Known Allergies Allergy (Verified 12/13/17 13:45) Home Medications: Medication Instructions Recorded Acetaminophen [Tylenol ES 500 mg 500 - 1,000 mg PO Q6 PRN 12/13/17 (*)] levOFLOXACIN [Levofloxacin] 750 mg PO DAILY #5 tablet 12/14/17 Laboratory Results: Laboratory Results 12/15/17 17:35 12/15/17 17:35 12/15/17 12/15/17 12/15/17 18:00 17:40 17:35 WBC RBC Hgb Hct MCV MCH MCHC RDW Plt Count MPV Neut % (Auto) Lymph % (Auto) Vance % (Auto) Eos % (Auto) Baso % (Auto) Nucleat RBC Rel Count Absolute Neuts (auto) Absolute Lymphs (auto) Absolute Monos (auto) Absolute Eos (auto) Absolute Basos (auto) Absolute Nucleated RBC Immature Gran % Immature Gran # Sodium 137 mEq/L mEq/L (135-145) Potassium 4.5 mEq/L mEq/L (3.5-5.2) Chloride 103 mEq/L mEq/L (97-110) Carbon Dioxide 22 mEq/l mEq/l (22-31) Anion Gap 12 mEq/L mEq/L (8-16) BUN 12 mg/dL mg/dL (7-23) Creatinine 0.8 mg/dL mg/dL (0.7-1.3) Estimated GFR > 60 Glucose 108 mg/dL H mg/dL (70-100) Calcium 8.7 mg/dL mg/dL (8.5-10.4) Total Bilirubin 0.8 mg/dL mg/dL (0.1-1.4) Conjugated Bilirubin 0.4 mg/dL mg/dL (0.0-0.5) Unconjugated Bilirubin 0.4 mg/dL mg/dL (0.0-1.1) AST 25 IU/L IU/L (17-59) ALT 51 IU/L IU/L (21-72) Alkaline Phosphatase 80 IU/L IU/L (38-126) Total Protein 6.5 g/dL g/dL (6.3-8.2) Albumin 3.5 g/dL g/dL (3.5-5.0) Lipase 51 IU/L IU/L (23-300) Urine Color YELLOW Urine Appearance CLEAR Urine pH 5.0 (5.0-7.5) Ur Specific [place] 1.018 (1.002-1.030) Urine Protein NEGATIVE (NEGATIVE) Urine Ketones NEGATIVE (NEGATIVE) Urine Blood 1+ H (NEGATIVE) Urine Nitrate NEGATIVE (NEGATIVE) Urine Bilirubin NEGATIVE (NEGATIVE) Urine Urobilinogen NEGATIVE EU EU (0.2-1.0) Ur Leukocyte Esterase 1+ H (NEGATIVE) Urine RBC 5-10 /hpf H /hpf (0-3) Urine WBC 50-182 /hpf H /hpf (0-3) Ur Epithelial Cells TRACE /lpf /lpf (NONE-1+) Urine Mucus TRACE /lpf /lpf (NONE-1+) Urine Glucose NEGATIVE (NEGATIVE) Nasal Influenza A PCR NEGATIVE FOR FLU A (NEGATIVE) Nasal Influenza B PCR NEGATIVE FOR FLU B (NEGATIVE) RSV (PCR) NEGATIVE FOR RSV (NEGATIVE) 12/15/17 17:35 WBC 6.23 10^3/uL D 10^3/uL (3.80-9.50) RBC 5.37 10^6/uL 10^6/uL (4.40-6.38) Hgb 15.0 g/dL g/dL (13.7-17.5) Hct 44.5 % % (40.0-51.0) MCV 82.9 fL fL (81.5-99.8) MCH 27.9 pg pg (27.9-34.1) MCHC 33.7 g/dL g/dL (32.4-36.7) RDW 14.1 % % (11.5-15.2) Plt Count 179 10^3/uL 10^3/uL (150-400) MPV 11.0 fL fL (8.7-11.7) Neut % (Auto) 81.6 % H % (39.3-74.2) Lymph % (Auto) 10.4 % L % (15.0-45.0) Vance % (Auto) 6.7 % % (4.5-13.0) Eos % (Auto) 0.3 % L % (0.6-7.6) Baso % (Auto) 0.5 % % (0.3-1.7) Nucleat RBC Rel Count 0.0 % % (0.0-0.2) Absolute Neuts (auto) 5.08 10^3/uL 10^3/uL (1.70-6.50) Absolute Lymphs (auto) 0.65 10^3/uL L 10^3/uL (1.00-3.00) Absolute Monos (auto) 0.42 10^3/uL 10^3/uL (0.30-0.80) Absolute Eos (auto) 0.02 10^3/uL L 10^3/uL (0.03-0.40) Absolute Basos (auto) 0.03 10^3/uL 10^3/uL (0.02-0.10) Absolute Nucleated RBC 0.00 10^3/uL 10^3/uL (0-0.01) Immature Gran % 0.5 % % (0.0-1.1) Immature Gran # 0.03 10^3/uL 10^3/uL (0.00-0.10) Sodium Potassium Chloride Carbon Dioxide Anion Gap BUN Creatinine Estimated GFR Glucose Calcium Total Bilirubin Conjugated Bilirubin Unconjugated Bilirubin AST ALT Alkaline Phosphatase Total Protein Albumin Lipase Urine Color Urine Appearance Urine pH Ur Specific [place] Urine Protein Urine Ketones Urine Blood Urine Nitrate Urine Bilirubin Urine Urobilinogen Ur Leukocyte Esterase Urine RBC Urine WBC Ur Epithelial Cells Urine Mucus Urine Glucose Nasal Influenza A PCR Nasal Influenza B PCR RSV (PCR) Medications Given: Discontinued Medications Acetaminophen (Tylenol) 1,000 mg PO ONCE ONE Stop: 12/15/17 20:26 Last Admin: 12/15/17 20:29 Dose: 1,000 mg Sodium Chloride (Ns) 1,000 mls @ 0 mls/hr IV EDNOW ONE; Wide Open PRN Reason: Protocol Stop: 12/15/17 17:26 Last Admin: 12/15/17 17:53 Dose: 1,000 mls Sodium Chloride (Ns) 1,000 mls @ 0 mls/hr IV EDNOW ONE; Wide Open PRN Reason: Protocol Stop: 12/15/17 18:20 Last Admin: 12/15/17 18:34 Dose: 1,000 mls Ibuprofen (Motrin) 600 mg PO EDNOW ONE Stop: 12/15/17 20:24 Last Admin: 12/15/17 20:26 Dose: 600 mg Ketorolac Tromethamine (Toradol) 30 mg IVP EDNOW ONE Stop: 12/15/17 18:20 Last Admin: 12/15/17 18:33 Dose: 30 mg Lorazepam (Ativan Injection) 1 mg IVP EDNOW ONE Stop: 12/15/17 18:20 Last Admin: 12/15/17 18:34 Dose: 1 mg Ondansetron HCl (Zofran Odt) 4 mg PO EDNOW ONE Stop: 12/15/17 17:02 Last Admin: 12/15/17 17:03 Dose: 4 mg Departure - Departure Disposition: [facility] Acute Clinical Impression: Perseveration Fever Qualifiers: Fever type: unspecified Qualified Code(s): R50.9 - Fever, unspecified UTI (urinary tract infection) Qualifiers: Urinary tract infection type: site unspecified Hematuria presence: with hematuria Qualified Code(s): N39.0 - Urinary tract infection, site not specified ; R31.9 - Hematuria, unspecified; R31.9 - Hematuria, unspecified Condition: Good
[2017-12-15] MEDS ORDERED: NS 1,000 ML IV ONE ×2 (17:25→18:19)
[2017-12-15 17:48] LABS: PLATELET COUNT 179 10^3/uL (150-400)
[2017-12-15] MEDS ORDERED: LORazepam 2 MG/ML INJ IVP ONE (18:19)
[2017-12-15] MEDS ORDERED: KETOROLAC 30 MG/1 ML SDV IVP ONE (18:19)
[2017-12-15] MEDS ORDERED: ACETAMINOPHEN 500 MG TAB ONE (20:17)
[2017-12-15] MEDS ORDERED: ACETAMINOPHEN 160 MG/5 ML UDCUP PO ONE (20:22)
[2017-12-15] MEDS ORDERED: IBUPROFEN 600 MG TAB PO ONE (20:23)
[2017-12-15] MEDS ORDERED: ACETAMINOPHEN 500 MG TAB PO ONE (20:25)
[2017-12-15] MEDS ORDERED: ONDANSETRON 4 MG/2 ML VIAL IVP PRN (22:44)
[2017-12-15] MEDS ORDERED: LORazepam 0.5 MG TAB PO PRN (22:44)
[2017-12-15] MEDS: NS 1,000 ML IV SCH (23:30)
--- NOTE | 2017-12-16 01:07 | PDGENHP ---
History and Physical - Chief Complaint Fevers, shaking chills, nausea vomiting - History of Present Illness Source - Patient provides history and appears reliable. EMR reviewed including recent hospital stay. Case discussed with accepting hospitalist. HPI - Pleasant 52 yo M with recent hospital stay discharge yesterday with sepsis /uti and pmhx of BPH, nephrolithiasis was discharged on levaquin prior to culture/sensitivity at patient insistence for discharge. Patient reports that earlier today he developed fever to 101F, rigors and vomiting x 2 episodes. Patient also endorses some episodes of myalgias, fatigue. Patient also quite concerned that he has not had anything to eat since his discharge but has been able to have some clears and kept these down until his episodes of vomiting earlier this afternoon. Patient denies any current flank pain, dysuria, hematuria. He reports he was compliant with the Levaquin and took a dose in the morning. Patient denies any diarrhea or abdominal pain. He denies any cough or rhinorrhea. History Information - Allergies/Home Medication List Allergies/Adverse Reactions: No Known Allergies Allergy (Verified 12/13/17 13:45) Home Medications: Acetaminophen [Tylenol ES 500 mg (*)] 500 - 1,000 mg PO Q6 PRN 12/13/17 [Last Taken 12/15/17] I have personally reviewed and updated: family history, medical history, social history, surgical history - Past Medical History Additional medical history: Asperger syndrome, anxiety. Obesity BMI 34.7. Urosepsis. Nephrolithiasis. History UTI 2013-15 x1 treated on outpatient basis. Strep pharyngitis. 09/2017-small bowel obstruction felt secondary to infectious process. Basal ganglia venous angioma. Prostatomegaly on imaging without complaints of BPH symptoms - Surgical History Additional surgical history: Left ankle surgery - Family History Positive for: stroke Additional family history: Mother: CHF Crohn's disease - Social History Smoking Status: Never smoked Alcohol Use: None Drug Use: None Additional social history: Patient lives alone, is independent in activities. Core-full Review of Systems Review of Systems: ROS: 10pt was reviewed & negative except for what was stated in HPI & below Constitutional: Reports: chills, fever, malaise, recent illness EENMT: Denies: nose congestion, sore throat Cardiac: Denies: chest pain, edema, lightheadedness, palpitations Respiratory: Denies: cough, shortness of breath Gastrointestinal: Reports: vomitting, nausea. Denies: black stools, abdominal pain, diarrhea Genitourinary: Denies: dysuria, flank pain (Patient experience this on previous admission but has since resolved), frequency, hematuria, urgency Muscolosketal: Reports: muscle pain (Myalgias). Denies: joint pain Skin: Reports: no symptoms Neurological: Reports: anxiety. Denies: numbness, tingling, weakness Hematologic/Lymphatic: Reports: no symptoms Physical Exam Physical Exam: Selected Entries 12/15/17 16:58 Blood Pressure Automatic Method Heart Rate 101 H Respiratory 20 Rate O2 Sat (%) 96 Temperature (C) 36.7 C Blood Pressure 170/97 H Mean Arterial 121 H Pressure (MAP) O2 Delivery Room Air Mode Temperature Oral Source Temp Pulse Resp BP Pulse Ox 37.1 C 90 16 119/74 90 L 12/15/17 23:25 12/15/17 23:25 12/15/17 23:25 12/15/17 23:25 12/15/17 23:25 Constitutional: no apparent distress, appears nourished, obese, other (NAD. Patient lays quietly in bed. Appears fatigued but nontoxic.) Eyes: PERRL, anicteric sclera, EOMI Ears, Nose, Mouth, Throat: moist mucous membranes, No poor dentition Cardiovascular: regular rate and rhythym, no murmur, rub, or gallop, pulses symmetric bilaterally, No edema Peripheral Pulses: 2+: dorsalis-pedis (R), dorsalis-pedis (L) Respiratory: no respiratory distress, no rales or rhonchi, clear to auscultation , No expiratory wheeze Gastrointestinal: normoactive bowel sounds, soft, non-tender abdomen, no palpable masses, other (Obese abdomen), No tenderness, No distension Genitourinary: no bladder tenderness, other (No CVA tenderness), No madera in urethra Skin: warm, normal color, no rashes or abrasions, No mottled, No rash Musculoskeletal: full muscle strength, No pain with ROM, No generalized weakness Neurologic: AAOx3, sensation intact bilaterally, other (Grossly nonfocal), No facial droop Psychiatric: interacting appropriately, not anxious, not encephalopathic, thought process linear Lab Data & Imaging Review 12/15/17 17:35 12/15/17 17:35 WBC 6.23 10^3/uL (3.80-9.50) D 12/15/17 17:35 RBC 5.37 10^6/uL (4.40-6.38) 12/15/17 17:35 Hgb 15.0 g/dL (13.7-17.5) 12/15/17 17:35 Hct 44.5 % (40.0-51.0) 12/15/17 17:35 MCV 82.9 fL (81.5-99.8) 12/15/17 17:35 MCH 27.9 pg (27.9-34.1) 12/15/17 17:35 MCHC 33.7 g/dL (32.4-36.7) 12/15/17 17:35 RDW 14.1 % (11.5-15.2) 12/15/17 17:35 Plt Count 179 10^3/uL (150-400) 12/15/17 17:35 MPV 11.0 fL (8.7-11.7) 12/15/17 17:35 Neut % (Auto) 81.6 % (39.3-74.2) H 12/15/17 17:35 Lymph % (Auto) 10.4 % (15.0-45.0) L 12/15/17 17:35 [place] % (Auto) 6.7 % (4.5-13.0) 12/15/17 17:35 Eos % (Auto) 0.3 % (0.6-7.6) L 12/15/17 17:35 Baso % (Auto) 0.5 % (0.3-1.7) 12/15/17 17:35 Nucleat RBC Rel Count 0.0 % (0.0-0.2) 12/15/17 17:35 Absolute Neuts (auto) 5.08 10^3/uL (1.70-6.50) 12/15/17 17:35 Absolute Lymphs (auto) 0.65 10^3/uL (1.00-3.00) L 12/15/17 17:35 Absolute Monos (auto) 0.42 10^3/uL (0.30-0.80) 12/15/17 17:35 Absolute Eos (auto) 0.02 10^3/uL (0.03-0.40) L 12/15/17 17:35 Absolute Basos (auto) 0.03 10^3/uL (0.02-0.10) 12/15/17 17:35 Absolute Nucleated RBC 0.00 10^3/uL (0-0.01) 12/15/17 17:35 Immature Gran % 0.5 % (0.0-1.1) 12/15/17 17:35 Immature Gran # 0.03 10^3/uL (0.00-0.10) 12/15/17 17:35 VBG Lactic Acid 0.9 mmol/L (0.7-2.1) 12/15/17 19:56 Sodium 137 mEq/L (135-145) 12/15/17 17:35 Potassium 4.5 mEq/L (3.5-5.2) 12/15/17 17:35 Chloride 103 mEq/L (97-110) 12/15/17 17:35 Carbon Dioxide 22 mEq/l (22-31) 12/15/17 17:35 Anion Gap 12 mEq/L (8-16) 12/15/17 17:35 BUN 12 mg/dL (7-23) 12/15/17 17:35 Creatinine 0.8 mg/dL (0.7-1.3) 12/15/17 17:35 Estimated GFR > 60 12/15/17 17:35 Glucose 108 mg/dL (70-100) H 12/15/17 17:35 Calcium 8.7 mg/dL (8.5-10.4) 12/15/17 17:35 Total Bilirubin 0.8 mg/dL (0.1-1.4) 12/15/17 17:35 Conjugated Bilirubin 0.4 mg/dL (0.0-0.5) 12/15/17 17:35 Unconjugated Bilirubin 0.4 mg/dL (0.0-1.1) 12/15/17 17:35 AST 25 IU/L (17-59) 12/15/17 17:35 ALT 51 IU/L (21-72) 12/15/17 17:35 Alkaline Phosphatase 80 IU/L (38-126) 12/15/17 17:35 Total Protein 6.5 g/dL (6.3-8.2) 12/15/17 17:35 Albumin 3.5 g/dL (3.5-5.0) 12/15/17 17:35 Lipase 51 IU/L (23-300) 12/15/17 17:35 Urine Color YELLOW 12/15/17 18:00 Urine Appearance CLEAR 12/15/17 18:00 Urine pH 5.0 (5.0-7.5) 12/15/17 18:00 Ur Specific [place] 1.018 (1.002-1.030) 12/15/17 18:00 Urine Protein NEGATIVE (NEGATIVE) 12/15/17 18:00 Urine Ketones NEGATIVE (NEGATIVE) 12/15/17 18:00 Urine Blood 1+ (NEGATIVE) H 12/15/17 18:00 Urine Nitrate NEGATIVE (NEGATIVE) 12/15/17 18:00 Urine Bilirubin NEGATIVE (NEGATIVE) 12/15/17 18:00 Urine Urobilinogen NEGATIVE EU (0.2-1.0) 12/15/17 18:00 Ur Leukocyte Esterase 1+ (NEGATIVE) H 12/15/17 18:00 Urine RBC 5-10 /hpf (0-3) H 12/15/17 18:00 Urine WBC 50-182 /hpf (0-3) H 12/15/17 18:00 Ur Epithelial Cells TRACE /lpf (NONE-1+) 12/15/17 18:00 Urine Mucus TRACE /lpf (NONE-1+) 12/15/17 18:00 Urine Glucose NEGATIVE (NEGATIVE) 12/15/17 18:00 Nasal Influenza A PCR NEGATIVE FOR FLU A (NEGATIVE) 12/15/17 17:40 Nasal Influenza B PCR NEGATIVE FOR FLU B (NEGATIVE) 12/15/17 17:40 RSV (PCR) NEGATIVE FOR RSV (NEGATIVE) 12/15/17 17:40 Urine Culture 12/13/17 - + Kelbsiella Oxytoca that is pansensitive. Imaging Review: 12/13/17 CT Scan Abdomen (Without Contrast) Clinical Indications: Abdominal and flank pain. History of nephrolithiasis Technique: Multidetector helical CT was performed from the diaphragm to the umbilicus. IV contrast was not given. Dose reduction techniques were utilized. Comparison: October 10, 2016, December 18, 2013 Findings: The lung bases are clear, and there is no significant pleural fluid. The liver is normal. The biliary ducts are not dilated, and no calcifications are seen in the gallbladder. The pancreas and spleen are normal. The adrenal glands and kidneys are normal. The kidneys are equal in size with no evidence of obstruction. There are at least 2 punctate calculi in the right renal collecting system and a single punctate calculus in the left collecting system. Bilateral cortical versus peripelvic cysts measure simple fluid attenuation. The ureters and bladder are normal. The prostate is mildly enlarged. The stomach and small bowel are nondilated and nonthickened. The appendix is normal. There is inflammatory stranding throughout the jejunal mesentery with prominent and numerous mesenteric lymph nodes. A few sigmoid diverticula are present. No intra- abdominal free fluid or free air. Impression: 1. 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 Appearance is not significantly changed over serial imaging dating back to 2013. 2. Bilateral nonobstructive nephrolithiasis. 3. Prostatomegaly. Recommend correlation with PSA. Findings were communicated by telephone with Dr. Pineda 4:00 PM 12/13/2017 Assessment & Plan Assessment: Fever (Acute) - patient has remained afebrile since arrival to the emergency department. He was just admitted for UTI and sepsis. Patient reports that he had been compliant with antibiotic therapy and had taken 1 dose since his discharge of Levaquin. Patient without criteria for SIRS or sepsis at this time. Will admit for observation. Reassured patient that given his recent infectious process that he can anticipate to have some minor fevers and chills. Urinary tract infection (Acute) - culture from 12/13/2017 was significant for Klebsiella oxytoca that was pansensitive. Will plan to continue Levaquin as noted above at this time. Patient does have bilateral nephrolithiasis will try to strain urine. Lower suspicion that this stones or infected at this point as patient's laboratory studies and vital signs are within normal limits. Patient does have evidence of some prostatomegaly on imaging previously. He denies any symptomatic BPH. Given his recurrent history of UTIs will add Flomax to patient 's medication list in the morning. Nausea and vomiting - status post Zofran in the emergency department. Patient reports that his symptoms are completely resolved at this time. Will advance diet as tolerated continue with some gentle hydration overnight. Consider discharging patient with Zofran ODT should his symptoms recur. chronic medical issues Anxiety-patient receive Ativan in the emergency department symptoms are stable at this time. Asperger syndrome Nephrolithiasis-as noted above Obesity (BMI 34.7) FEN - advance diet as tolerated. Continue with some gentle fluid IV fluid hydration overnight. Electrolyte monitoring and replacement if needed. PPX-SCDs. Lovenox if patient should stay additional day. Core-full Disposition-patient admitted observation status on the medical floor at this time. Anticipate less than 2 midnight stay.
[2017-12-16] MEDS: ACETAMINOPHEN 325 MG TAB PO PRN ×3 (02:38→22:55)
[2017-12-16] MEDS ORDERED: HYDROmorphONE/DILAUDID 2 MG/ML INJ IVP PRN (03:18)
[2017-12-16] MEDS: KETOROLAC 15 MG/1 ML SDV IVP PRN ×3 (03:39→20:45)
[2017-12-16] MEDS: TAMSULOSIN HCL 0.4 MG CAP PO SCH (03:39)
[2017-12-16 05:43] LABS: PLATELET COUNT 159 10^3/uL (150-400)
[2017-12-16] MEDS: ENOXAPARIN 40 MG/0.4 ML SYR SC SCH (08:23)
[2017-12-16] MEDS ORDERED: ONDANSETRON DISINTEGRATING 4 MG TAB PO PRN (10:33)
[2017-12-16] MEDS: NS 1,000 ML IV SCH ×2 (13:54→22:56)
[2017-12-16] MEDS ORDERED: HYDROCODONE/APAP 5/325 TAB PO PRN (14:24)
--- NOTE | 2017-12-16 14:30 | HOSPPROG ---
Hospitalist Progress Note Assessment/Plan: # Sepsis - (rigors, tachycardia and fever) presumed source urinary - previous Bcx NGTD Ucx with Klebsiella sensitive to levofloxacin CT abd (personally reviewed and interpreted) nonobstructive nephrolithiasis and colonic edema pt feels terrible- continues to rigor and feel nauseated - received aggressive fluid resuscitation upon admission - blood cultures now - IV ceftriaxone Q 24 - monitor cultures - Demerol p.r.n. For rigors - continue IV fluid resuscitation # acute urinary tract infection- presume secondary to Klebsiella- isolated on urine culture during index admission- WBC normal - continue follow cultures - IV ceftriaxone - cont flomax # sinus tachycardia- secondary to fever and sepsis- oxygen saturations 90% on room air - continue supportive care # prophylaxis Lovenox # diet regular # disposition> 2MN - as requires ongoing aggressive care for sepsis Discussed the case with the RN- we will obtain blood cultures now as patient with high fever this afternoon- cont supportive care Subjective: Feels terrible Objective: Vital Signs Temp Pulse Resp BP Pulse Ox 38.7 C H 104 H 18 129/79 H 91 L 12/16/17 11:19 12/16/17 11:19 12/16/17 11:19 12/16/17 11:19 12/16/17 11:19 Laboratory Results 12/16/17 05:18 12/16/17 05:18 12/15/17 12/16/17 12/17/17 05:59 05:59 05:59 Intake Total 400 1550 Output Total 800 200 Balance -400 1350 - Physical Exam Constitutional: obese Eyes: anicteric sclera Ears, Nose, Mouth, Throat: dry mucous membranes Cardiovascular: regular rate and rhythym Respiratory: no respiratory distress Gastrointestinal: normoactive bowel sounds, tenderness Genitourinary: no bladder fullness Skin: warm Musculoskeletal: No asymmetric calves Neurologic: AAOx3 Psychiatric: interacting appropriately Lymph, Heme, Immunologic: no cervical LAD ICD10 Worksheet Patient Problems: Problems Problem Status Onset Fever Acute Perseveration Acute Urinary tract infection Acute Abdominal pain Acute Diarrhea Acute Gastroenteritis Acute Nausea and vomiting Acute Severe sepsis Acute Syncope and collapse Acute
--- NOTE | 2017-12-16 15:19 | ASMTCMCOM ---
CM Note CM Note Notes: Pt just dc'd on 12/13, readmitted w/sepsis. Pt lives at home independantly. DC needs, if any, not clear yet. CM will follow and will meet w/him prior to dc to discuss PCP b/c as of last admission it was recommended to him to find PCP. Date Signed: 12/16/2017 03:18 PM Electronically Signed By:Lilly Larios RN
[2017-12-16] MEDS: cefTRIAXone 2 GM in STERILE WATER INJ 20 ML IV SCH (15:30)
--- NOTE | 2017-12-16 16:12 | PDMN ---
Medical Necessity Medical necessity: C/M review: est. > 2 MN LOS for eval and TX of acute and persistent sepsis - presumed urinary source, , urinary tract infection, sinus tachycardia, rigors, high fever, nausea, requiring blood cultures 12/16/2017 PM , ongoing IV Ceftriaxone, IV Dilaudid, IV Ketorolac, IV Zofran, IV fluids, comorbid recent admission for acute sepsis presumed urinary source, UTI - klebsiella isolated on urine culture, sensitive to levofloxacin that patient was discharged home on, previous blood cultures showed no growth to date from prior admission per 12/16/2017 Hospitalist progress note.
[2017-12-17] MEDS: KETOROLAC 15 MG/1 ML SDV IVP PRN (02:18)
[2017-12-17 07:19] VITALS: BP 124/86; PULSE 88; RESP 16; TEMP 98.1; O2SAT 94
[2017-12-17] MEDS: TAMSULOSIN HCL 0.4 MG CAP PO SCH (07:52)
[2017-12-17] MEDS: cefTRIAXone 2 GM in STERILE WATER INJ 20 ML IV SCH (07:52)
[2017-12-17] MEDS: ENOXAPARIN 40 MG/0.4 ML SYR SC SCH (07:53)
--- NOTE | 2017-12-17 14:18 | GDS ---
[f rep st] DISCHARGE SUMMARY Amended report DISCHARGE DIAGNOSES: Include: 1. Sepsis, secondary urinary source. 2. Acute urinary tract infection secondary to Klebsiella. 3. Tachycardia secondary to hypovolemia and sepsis. 4. Benign prostatic hypertrophy. HISTORY OF PRESENT ILLNESS: This is a 52-year-old male who was hospitalized on 12/13/2017, with acute urinary tract infection. Patient was initiated on IV antibiotics and transitioned to levofloxacin. Klebsiella was obtained from his urine and the patient discharged on oral levofloxacin for which this Klebsiella was sensitive. Patient returned 24 hours later with continuing fevers and rigors. For details of patient's initial presentation, please see the History and Physical on 12/15/2017. CONSULTATIVE SERVICES: None. PROCEDURES: None. HOSPITAL COURSE BY ISSUE: 1. Sepsis. Patient presented with tachycardia, fevers, rigors, presumed source remained urinary. The patient was placed on IV ceftriaxone. New blood cultures were obtained, and patient was monitored and aggressively hydrated. After adequate fluid resuscitation and ongoing antibiotics, patient's blood cultures remained negative from his index hospitalization, as well as this readmission. Patient is being discharged back on oral levofloxacin for which his Klebsiella is sensitive. He will be treated for 14 days, an extended length , secondary to presence of what was visualized as nonobstructing nephrolithiasis in case those stones are complicating the patient's presentation. We have asked that he follow with his primary care provider in the next 7-10 days and with Urology in the next 3-4 weeks for evaluation. 2. Nonobstructing nephrolithiasis. Patient had these visualized on CT imaging. We did place the patient on Flomax to assist in passage in case the stones are intermittently passing and complicating his presentation. Additionally noted to have BPH on CT imaging, so should seek followup with Urology, both for recommendations related to the discontinuation or not of Flomax related to his prostate and his nephrolithiasis. 3. Acute urinary tract infection secondary to Klebsiella. No new pathogens have been obtained on culture. Will continue treatment with oral levofloxacin and, again, the patient will follow in the outpatient setting with PCP in the next 7-10 days at the completion of antibiotics for overall followup. MEDICATIONS AT THE TIME OF TRANSFER: Please reference the med rec printed on . FOLLOWUP APPOINTMENTS: Include: 1. With a [id number] primary care in the next 7-10 days. The patient has been provided with resources and names. 2. With Urology in the next 3-4 weeks to discuss his nephrolithiasis and prostatic hypertrophy and the ongoing use of Flomax. PENDING STUDIES: At the time of this dictation include blood cultures drawn which are preliminary no growth to date. I spent greater than 30 minutes in the planning and coordination of this discharge. /[id number]/MODL Add acc#, 12/18/17, sebastian SANTIAGO
--- NOTE | 2017-12-17 16:26 | ASMTLACE ---
CLARICE Length of stay for Answers: 1 day current admission Acuity / Level of Answers: Yes Care: Did the patient have an inpatient admission? Comorbidities - select Answers: Other Notes: Aspergers, Urosepsis, B PH all that apply # of Emergency department Answers: 1-2 visits in the last 6 months Social determinants Answers: Mental health diagnosis (anxiety, depression, pers onality disorders, etc.) Score: 9 Date Signed: 12/17/2017 04:25 PM Electronically Signed By:Cass Davis RN
--- NOTE | 2017-12-17 16:33 | ASDISCHSUM ---
Discharge Information Plan Status:Home with No Needs Medically Cleared to Leave:12/17/2017 Discharge Date:12/17/2017 11:39 AM CM D/C Disposition:Home, Routine, Self-Care ADT D/C Disposition:Home, Routine, Self-Care Projected Discharge Date:12/17/2017 11:39 AM Transportation at D/C:Self Discharge Delay Reason: Follow-Up Date:12/17/2017 11:39 AM Discharge Slot:2 - 12:01 pm - 18:00 pm Final Diagnosis:Urosepsis, uti, BPH, nephrolithiasis, Asperger syndrome, anxiety Placement Information Patient Contact Information Contact Name:KARINE Relationship:Juan Address: City: [facility] Phone: [facility]/Zip Code: Email: Financial Information Financial Class:Medicaid Primary Plan Desc:MEDICAID [facility] FIRST RN DIABETES EDUCATOR Primary Plan Number:[id number] Secondary Plan Desc: Secondary Plan Number: Assessment Information LACE LACE Length of stay for Answers: 1 day current admission Acuity / Level of Answers: Yes Care: Did the patient have an inpatient admission? Comorbidities - select Answers: Other Notes: Aspergers, Urosepsis, B PH all that apply # of Emergency department Answers: 1-2 visits in the last 6 months Social determinants Answers: Mental health diagnosis (anxiety, depression, pers onality disorders, etc.) Score: 9 Date Signed: 12/17/2017 04:25 PM Electronically Signed By:Cass Davis RN [facility] Progress Note CM Note CM Note Notes: Pt just dc'd on 12/13, readmitted w/sepsis. Pt lives at home independantly. DC needs, if any, not clear yet. CM will follow and will meet w/him prior to dc to discuss PCP b/c as of last admission it was recommended to him to find PCP. Date Signed: 12/16/2017 03:18 PM Electronically Signed By:Lilly Larios RN Case Management Discharge Plan Note Case Management Discharge Discharge Order Complete? Answers: Yes Patient to Obtain Answers: Independently Medications Transportation Arranged Answers: Other Notes: Self EMTALA Complete Answers: No Notes: N/A Case Management Transport Answers: No Notes: N/A Form Complete Faxed Final Orders Answers: No Notes: N/A Agency/Facility Transfer Answers: No Notes: N/A Report Printed & Faxed to Receiving Agency Family Notified Answers: No Notes: Pt denies Discharge Comments Notes: Reviewed chart, spoke with ROB Marina regarding discharge plan of care, pt's progress. Pt to discharge home independently today with no identified needs. Met with pt to discuss follow up and Primary Care provider information. Per CM notes from prior hospitalization, pt does not have a PCP. Pt states he will be receiving new insurance benefits on December 24, 2017, with [employer]. Pt has previously utilized [facility]. Pt given a [facility] "Live Better" brochure; discussed how to establish a new PCP. Pt verbalized understanding. Pt reports driving himself to the hospital and states he will be fine driving himself home. No IM signed, not applicable. Pt to follow up as directed. CM available for any further issues or concerns. Discharge Plan: Home independently Date Signed: 12/17/2017 04:33 PM Electronically Signed By:Cass Davis RN Intervention Information
== END 2017-12-17 11:39 | disposition home or self-care (01) | DRG 872 ==
LOC: F3E 20:39 → OBSVTOIN 12-16 13:20
PROVIDERS: ADMIT Internal Medicine; ATTEND Internal Medicine
DX: A41.89 Other specified sepsis (principal); N39.0 Urinary tract infection, site not specified; F84.5 Asperger's syndrome; B96.1 Klebsiella pneumoniae [K. pneumoniae] as the cause of diseases classified elsewhere; E86.1 Hypovolemia; N40.1 Benign prostatic hyperplasia with lower urinary tract symptoms; N20.0 Calculus of kidney; E66.9 Obesity, unspecified; Z68.34 Body mass index [BMI] 34.0-34.9, adult
CPT/HCPCS: 96374; G0378; J0696; J1170; J1650; J1885; J2060; J2405

== ENCOUNTER 2018-02-23 15:51 | Emergency (ER) | payer OTHER, MEDICAID ==
--- NOTE | 2018-02-23 15:58 | EDPHY ---
H & P Time Seen by Provider: 02/23/18 15:56 HPI/ROS: CHIEF COMPLAINT: Chest pain HISTORY OF PRESENT ILLNESS: The patient is a 52-year-old man with a history of autism and anxiety and family history of coronary artery disease but no personal history. 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 He has never had this before. He describes it is a pain that was 3/10 and is now decreased to 1/10. He denies shortness of breath or lightheadedness. No diaphoresis or nausea. He told his artificial flowers supervisor who made him come to the ER. He ride via EMS and had normal vital signs. No leg pain or swelling REVIEW OF SYSTEMS: Constitutional: denies: chills, fever, recent illness, recent injury EENTM: denies: blurred vision, double vision, nose congestion Respiratory: denies: cough, shortness of breath Cardiac: See HPI denies: irregular heart rate, lightheadedness, palpitations Gastrointestinal/Abdominal: denies: abdominal pain, diarrhea, nausea, vomiting, blood streaked stools Genitourinary: denies: dysuria, frequency, hematuria, pain Musculoskeletal: denies: joint pain, muscle pain Skin: denies: lesions, rash, jaundice, bruising Neurological: denies: headache, numbness, paresthesia, tingling, dizziness, weakness Hematologic/Lymphatic: denies: blood clots, easy bleeding, easy bruising Immunologic/allergic: denies: HIV/AIDS, transplant EXAM: GENERAL: Well-appearing, overweight and in no acute distress. HEAD: Atraumatic, normocephalic. EYES: Pupils equal round and reactive to light, extraocular movements intact, sclera anicteric, conjunctiva are normal. ENT: TMs normal, nares patent, oropharynx clear without exudates. Moist mucous membranes. NECK: Normal range of motion, supple without lymphadenopathy or JVD. LUNGS: Breath sounds clear to auscultation bilaterally and equal. No wheezes rales or rhonchi. HEART: Regular rate and rhythm without murmurs, rubs or gallops. ABDOMEN: Soft, nontender, normoactive bowel sounds. No guarding, no rebound. No masses appreciated. BACK: No CVA tenderness, no spinal tenderness, step-offs or deformities EXTREMITIES: Normal range of motion, no pitting or edema. No clubbing or cyanosis. NEUROLOGICAL: Cranial nerves II through XII grossly intact. Normal speech, normal gait. 5/5 strength, normal movement in all extremities, normal sensation PSYCH: Normal mood, normal affect. SKIN: Warm, dry, normal turgor, no visible rashes or lesions. Source: Patient Exam Limitations: No limitations - Personal History Tetanus Vaccine Date: 2010 - Medical/Surgical History Hx Asthma: No Hx Chronic Respiratory Disease: No Hx Diabetes: No Hx Cardiac Disease: No Hx Renal Disease: No Hx Cirrhosis: No Hx Alcoholism: No Hx HIV/AIDS: No Hx Splenectomy or Spleen Trauma: No Other PMH: anxiety, asperger's; kidney stones; Left ankle sx, strep, - Family History Significant Family History: No pertinent family hx - Social History Smoking Status: Never smoked Alcohol Use: Sober Drug Use: None Constitutional: Initial Vital Signs Temperature (C) 36.8 C 02/23/18 15:59 Heart Rate 88 02/23/18 15:59 Respiratory Rate 16 02/23/18 15:59 Blood Pressure 149/94 H 02/23/18 15:59 O2 Sat (%) 94 02/23/18 15:59 O2 Delivery Mode Room Air Allergies/Adverse Reactions: No Known Allergies Allergy (Verified 12/13/17 13:45) Home Medications: Medication Instructions Recorded Acetaminophen [Tylenol ES 500 mg 500 - 1,000 mg PO Q6 PRN 12/13/17 (*)] Ibuprofen 600 mg PO Q6 PRN #45 tablet 12/17/17 Tamsulosin HCl [Flomax 0.4 MG (*)] 0.4 mg PO DAILY #30 cap 12/17/17 levOFLOXACIN [Levofloxacin] 750 mg PO DAILY #5 tablet 12/17/17 Medical Decision Making - Diagnostics EKG Interpretation: An EKG obtained and was read and documented in trace view. Please see trace view for full reading and report. Sinus rhythm, no acute ischemic changes, similar to previous Imaging: Discussed imaging studies w/ manager call center Radiologist ED Course/Re-evaluation: 5:30 p.m. patient is currently asymptomatic. We discussed test results which are reassuring. We discussed risks IM percentages and agreed to do a 3 hr troponin. 5:35 p.m. After further discussion the patient states he would prefer to go home. He will follow up with his primary doctor for further testing. Differential Diagnosis: Partial list of the Differential diagnosis considered include but were not limited to; acute coronary disease, dissection, PE, anxiety, costochondritis, gastrointestinal and although unlikely based on the history and physical exam, I also considered pneumonia, pneumothorax, aneurysm. I discussed these differential diagnoses and the plan with the patient as well as the usual and expected course. The patient understands that the diagnosis is provisional and that in medicine we are not always correct and that further workup is often warranted. Usual and customary warnings were given. All of the patient's questions were answered. The patient was instructed to return to the emergency department should the symptoms at all worsen or return, otherwise to followup with the physician as we discussed. - Data Points Laboratory Results: Laboratory Results 02/23/18 15:51 02/23/18 15:51 Medications Given: Discontinued Medications Sodium Chloride (Ns) 500 mls @ 0 mls/hr IV EDNOW ONE; Wide Open PRN Reason: Protocol Stop: 02/23/18 15:57 Last Admin: 02/23/18 16:54 Dose: 500 mls Point of Care Test Results: Chemistry 02/23/18 16:01 POC Troponin I 0.00 ng/mL ng/mL (0.00-0.08) Departure - Departure Disposition: Home, Routine, Self-Care Clinical Impression: Chest pain Qualifiers: Chest pain type: unspecified Qualified Code(s): R07.9 - Chest pain, unspecified Condition: Good Instructions: Chest Pain (ED) Referrals: Patient,NotPresent [Unknown] - As per Instructions Mckayla Roberson MD [Medical Doctor] - As per Instructions Stand Alone Forms: Work Excuse
--- NOTE | 2018-02-23 15:59 | CPEKG ---
Heart Rate: 83 RR Interval: 723 P-R Interval: 212 QRSD Interval: 98 QT Interval: 372 QTC Interval: 437 P [place]: 67 QRS [place]: 266 T Wave [place]: 47 EKG Severity - ABNORMAL ECG - EKG Impression: SINUS RHYTHM EKG Impression: PROBABLE LEFT ATRIAL ABNORMALITY EKG Impression: LEFT ANTERIOR FASCICULAR BLOCK EKG Impression: PROBABLE RIGHT VENTRICULAR HYPERTROPHY EKG Impression: Similar to previous Electronically Signed By: Charles Morillo 23-Feb-2018 16:23:55
[2018-02-23] MEDS: NS 500 ML IV ONE ×3 (16:09→16:54)
[2018-02-23 16:13] LABS: PLATELET COUNT 279 10^3/uL (150-400)
[2018-02-23 16:28] LABS: INR 0.99 (0.83-1.16); PROTIME(PATIENT) 13.3 SEC (12.0-15.0)
[2018-02-23] MEDS ORDERED: IOPAMIDOL (ISOVUE 370) 100 ML BTL IV ONE (16:54)
[2018-02-23 17:42] VITALS: BP 133/84
== END 2018-02-23 17:43 | disposition home or self-care (01) ==
LOC: EDUNIT#
DX: R07.9 Chest pain, unspecified (principal); E86.9 Volume depletion, unspecified
CPT/HCPCS: 84484-PO; Q9967